=== PATIENT | male | born 1990 | race African-American/Black ===

== ENCOUNTER 2016-04-01 20:10 | Emergency (ER) | payer OTHER ==
[2016-04-01 20:22] VITALS: BP 129/75; PULSE 58; TEMP 98.3; BMI 24.3
[2016-04-01] MEDS ORDERED: IBUPROFEN 600 MG TABLET (FP) PO ONE (22:11)
[2016-04-01] MEDS ORDERED: IBUPROFEN 100 MG/5 ML UNIT DOSE CUPS ONE (22:14)
--- NOTE | 2016-04-01 22:17 | PDOC ---
History of Present Illness - General Chief Complaint: Toothache Stated Complaint: TOOTHACHE Time Seen by Provider: 04/01/16 21:49 History Source: Patient Exam Limitations: No Limitations - History of Present Illness Initial Comments: 04/01/16 22:12 CHIEF COMPLAINT: Upper molar pain left side HISTORY OF PRESENT ILLNESS: Patient is a 25-year-old male with no significant medical history here today complaining of left-sided upper molar pain especially when eating for the last few days. Patient denies any fever. Patient denies any swelling of his face on left side. Patient has an appointment with dentist next week. Patient reports that part of that tooth broke off a few months ago and was okay until a few days ago when he developed pain with eating on that side. Timing/Duration: getting worse Severity: moderate (left upper molar ) Modifying Factors: improves with: medication (ibuprofen ), other (worse with eating ) Associated Symptoms: reports: denies symptoms, other Past History - Past Medical History Allergies/Adverse Reactions: Allergies Allergy/AdvReac Type Severity Reaction Status Date / Time No Known Allergies Allergy Verified 04/01/16 20:20 Home Medications: Ambulatory Orders NK [No Known Home Medication] 04/01/16 Other medical history: denies - Psycho/Social/Smoking Cessation Hx Anxiety: No Suicidal Ideation: No Smoking History: Current every day smoker Have you smoked in the past 12 months: Yes Number of Cigarettes Smoked Daily: 10 Cigars Per Day: 1 Information on smoking cessation initiated: No Hx Alcohol Use: No Drug/Substance Use Hx: No Substance Use Type: None Review of Systems - Review of Systems Able to Perform ROS?: Yes Constitutional: No: Symptoms Reported HEENTM: Yes: Dental Problems (upper molar pain when eating) Respiratory: No: Symptoms reported Cardiac (ROS): No: Symptoms Reported ABD/GI: No: Symptoms Reported : No: Symptoms Reported Musculoskeletal: No: Symptoms Reported Integumentary: No: Symptoms Reported *Physical Exam - Vital Signs Last Vital Signs Temp Pulse Resp BP Pulse Ox 98.3 F 58 L 14 129/75 100 04/01/16 20:20 04/01/16 20:20 04/01/16 20:20 04/01/16 20:20 04/01/16 20:20 - Physical Exam General Appearance: Yes: Appropriately Dressed HEENT: positive: TMs Normal, Other (left upper molar fracture slight with no surrounding erythema, edema of gum). negative: Pharyngeal Erythema, Tonsillar Exudate, Tonsillar Erythema, Nasal Congestion, Rhinorrhea, Sinus Tenderness Neck: negative: Lymphadenopathy (R), Lymphadenopathy (L) Respiratory/Chest: positive: Lungs Clear, Normal Breath Sounds. negative: Chest Tender, Respiratory Distress Cardiovascular: positive: Regular Rhythm, Regular Rate, S1, S2 Integumentary: positive: Normal Color Neurologic: positive: Alert, Responsive Medical Decision Making - Medical Decision Making 04/01/16 22:15 Patient is a 25-year-old male with no significant medical history here today complaining of left-sided upper molar pain especially when eating for the last few days. Patient denies any fever. Patient denies any swelling of his face on left side. Patient has an appointment with dentist next week. Patient reports that part of that tooth broke off a few months ago and was okay until a few days ago when he developed pain with eating on that side. Fractured molar left with tooth pain with eating Plan: Ibuprofen 600 mg by mouth now then every 6 hours as needed for pain *DC/Admit/Observation/Transfer Diagnosis at time of Disposition: Toothache Fractured tooth Qualifiers: Encounter type: initial encounter Fracture type: closed Qualified Code(s): S02.5XXA - Fracture of tooth (traumatic), initial encounter for closed fracture - Discharge Dispostion Disposition: HOME Condition at time of disposition: Stable - Patient Instructions Additional Instructions: Up with your dentist as soon as possible Return to emergency room if any facial swelling or fever Do not eat or drink on left side eat soft foods 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
== END 2016-04-01 22:27 | disposition home or self-care (01) ==
LOC: JERFT 20:10
DX: K08.89 Other specified disorders of teeth and supporting structures (principal)
CPT/HCPCS: 99281-25

== ENCOUNTER 2016-10-23 19:04 | Emergency (ER) | payer OTHER ==
[2016-10-23 19:16] VITALS: BP 130/74; PULSE 69; TEMP 98.3; BMI 21.5
--- NOTE | 2016-10-23 20:25 | PDOC ---
History of Present Illness - History of Present Illness Initial Comments: 10/23/16 20:50 CHIEF COMPLAINT: abscess HISTORY OF PRESENT ILLNESS: 26 yo M with no PMH presents to [facility] with abscess to L rodriguez. Patient reports that 2 weeks ago he fell and "my leg hit a bench" and he "got scratched" on his rodriguez. Last week he noticed a bump developing to his leg, and the bump "opened in the shower and pus came out of it ", but the bump returned and is now painful with redness. Patient states he doesn't know if he has ever had a tetanus shot. PAST MEDICAL HISTORY: Denies past medical history FAMILY HISTORY: Denies SOCIAL HISTORY: LDenies tobacco, alcohol, illicit drug use. SURGICAL HISTORY: Denies ALLERGIES: No known drug allergies REVIEW OF SYSTEMS General/Constitutional: Denies fever or chills. Denies weakness, weight change. HEENT: Denies change in vision. Denies ear pain or discharge. Denies sore throat. Cardiovascular: Denies chest pain or shortness of breath. Respiratory: Denies cough, wheezing, or hemoptysis. Gastrointestinal: Denies nausea, vomiting, diarrhea or constipation. Denies rectal bleeding. Genitourinary: Denies dysuria, frequency, or change in urination. Musculoskeletal: Denies joint or muscle swelling or pain. Denies neck or back pain. Skin: "This bump on my leg came back, and it hurts around the whole area." PHYSICAL EXAM General Appearance: Well-appearing, appropriately dressed. No apparent distress , no intoxication. HEENT: EOMI, PERRLA, normal ENT inspection, normal voice, TMs normal, pharynx normal. No conjunctival pallor. No photophobia, scleral icterus. Neck: Supple. Trachea midline. No tenderness, rigidity, carotid bruit, stridor , lymphadenopathy, or thyromegaly. Respiratory/Chest: Lungs CTAB. Cardiovascular: RRR. S1, S2. Musculoskeletal/Extremities: Normal inspection. FROM of all extremities, normal capillary refill. Pelvis Stable. No CVA tenderness. No tenderness to extremities, pedal edema, swelling, erythema or deformity. Integumentary: 2 cm x 2 cm tender, fluctuant abscess to L rodriguez with healed ulceration and surrounding erythema. Appropriate color, dry, warm. No cyanosis , erythema, jaundice or rash Neurologic: mentally retarded teacher II-XII intact. Fully oriented, alert. Appropriate mood/affect. Motor strength 5/5. No appreciable EOM palsy, facial droop or sensory deficit. 10/23/16 20:54 <Rain Mackay - Last Filed: 10/23/16 20:03> <Nicol Gonsales - Last Filed: 10/23/16 21:37> - General Chief Complaint: Abscess Boil Stated Complaint: BOIL ON L LEG Time Seen by Provider: 10/23/16 19:51 Past History - Past Medical History Other medical history: denies - Psycho/Social/Smoking Cessation Hx Anxiety: No Suicidal Ideation: No Smoking History: Current every day smoker Have you smoked in the past 12 months: Yes Number of Cigarettes Smoked Daily: 10 Cigars Per Day: 1 Information on smoking cessation initiated: No Hx Alcohol Use: No Drug/Substance Use Hx: No Substance Use Type: None <Rain Mackay - Last Filed: 10/23/16 20:03> <Nicol Gonsales - Last Filed: 10/23/16 21:37> - Past Medical History Allergies/Adverse Reactions: Allergies Allergy/AdvReac Type Severity Reaction Status Date / Time No Known Allergies Allergy Verified 10/23/16 19:16 Home Medications: Ambulatory Orders Sulfamethoxazole/Trimethoprim [Bactrim Ds Tablet] 1 each PO BID #14 tablet 10/23 *Physical Exam - Vital Signs Last Vital Signs Temp Pulse Resp BP Pulse Ox 98.3 F 69 18 130/74 97 10/23/16 19:08 10/23/16 19:08 10/23/16 19:08 10/23/16 19:08 10/23/16 19:08 <Rain Mackay - Last Filed: 10/23/16 20:03> - Vital Signs Last Vital Signs Temp Pulse Resp BP Pulse Ox 98.3 F 69 18 130/74 97 10/23/16 19:08 10/23/16 19:08 10/23/16 19:08 10/23/16 19:08 10/23/16 19:08 <Nicol Gonsales - Last Filed: 10/23/16 21:37> Procedures - Incision and Drainage I&D Site: Left: Leg Anesthesia: 1% Lidocaine Volume(ml): 3 Blade Size: 11 Attempts: 1 Complications: none Dressing: Yes (sterile gauze) Progress: Site was prepped with alcohol, then area was circumferentially injected with lidocaine 1% without epi. Incised in the area of maximal fluctuance, and expressed sm amt of purulent material. Wound culture sent. <Nicol Gonsales - Last Filed: 10/23/16 21:37> ED Treatment Course - RADIOLOGY Radiology Studies Ordered: Category Date Time Status LEG TIB/FIB-LEFT [RAD] Stat Radiology 10/23/16 20:03 Ordered <Rain Mackay - Last Filed: 10/23/16 20:03> - Medications Given in the ED: ED Medications Discontinued Medications Generic Name Dose Route Start Last Admin Trade Name Freq PRN Reason Stop Dose Admin Diphtheria/Tetanus/Acell Pertussis 0.5 ml 10/23/16 20:26 10/23/16 20:34 Boostrix - IM 10/23/16 20:27 0.5 ml .ONCE ONE Administration <Nicol Gonsales - Last Filed: 10/23/16 21:37> Medical Decision Making - Medical Decision Making 10/23/16 20:54 26 yo M with no PMH presents to [facility] with abscess to L rodriguez. -Tdap IM -I&D (see procedure note) Given surrounding erythema and cellulitis, will rx Bactrim. Advised patient to take medication as prescribed, soak wound, and follow up in 2 days for wound check. Advised patient of signs and symptoms for return to ED. Patient verbalized understanding and agrees to plan. <Rain Mackay - Last Filed: 10/23/16 20:03> *DC/Admit/Observation/Transfer - Discharge Dispostion Admit: No <Rain Mackay - Last Filed: 10/23/16 20:03> <Nicol Gonsales - Last Filed: 10/23/16 21:37> Diagnosis at time of Disposition: Abscess - Discharge Dispostion Disposition: HOME Condition at time of disposition: Stable - Prescriptions Prescriptions: Sulfamethoxazole/Trimethoprim [Bactrim Ds Tablet] 1 each PO BID #14 tablet - Referrals Referrals: Reagan Rachel MD [Primary Care Provider] - - Patient Instructions Printed Discharge Instructions: DI for Incision and Drainage of a Skin Abscess Additional Instructions: As discussed with Dr. Gonsales, please soak the abscess to help drain out the infection. Return in 2 days for a wound check. Please take your medication as prescribe and complete the entire course of antibiotics. If you experience any increased pain, swelling, redness, swelling or streaking to the area, or you develop fever, chills, vomiting, or diarrhea, please return to the ER.
[2016-10-23] MEDS ORDERED: DIPHTH,PERTUSS(ACELL),TET 0.5 ML DISP.SYRIN IM ONE (20:26)
== END 2016-10-23 21:02 | disposition home or self-care (01) ==
LOC: JERFT 19:04
PROC: 0H9LXZZ Drainage of Left Lower Leg Skin, External Approach (ICD-10-PCS; principal; 2016-10-23)
PROC: 3E0234Z Introduction of Serum, Toxoid and Vaccine into Muscle, Percutaneous Approach (ICD-10-PCS; 2016-10-23)
DX: L02.416 Cutaneous abscess of left lower limb (principal)
CPT/HCPCS: 10060; 73590-TC-LT; 87070; 87186; 87205; 90471; 90715; 99281-25

== ENCOUNTER 2016-10-25 16:00 | Emergency (ER) | payer OTHER ==
[2016-10-25 16:30] VITALS: BP 122/81; PULSE 56; TEMP 98.5; BMI 21.5
--- NOTE | 2016-10-25 17:20 | PDOC ---
Suture Removal/Wound Check HPI - History of Present Illness Chief Complaint: Revisit,Wound Recheck Stated Complaint: FOLLOW UP Time Seen by Provider: 10/25/16 16:55 History Source: Yes: Patient Exam Limitations: Yes: No Limitations Treated at: [facility] ED - Previous ED Treatment Type of procedure performed on last visit: Yes: I&D of Abscess Tetanus Immunization: Yes: Up to Date Antibiotics Prescribed: Yes (bactrim- ) Past History - Travel Traveled outside of the country in the last 30 days: No Close contact w/someone who was outside of country & ill: No - Past Medical History Allergies/Adverse Reactions: Allergies No Known Allergies Allergy (Verified 10/25/16 16:33) Home Medications: Ambulatory Orders Sulfamethoxazole/Trimethoprim [Bactrim Ds Tablet] 1 each PO BID #14 tablet 10/23 General: Yes: no pertinent history Surgical History: Yes: No Surgical History - Immunization History Immunizations Up to Date: Yes - Social History Smoking Status: Current every day smoker Number of Ciarettes Per Day: 10 Cigars Per Day: 1 Suture Removal/Wound Check PE - Physical Exam Laceration/Wound Check Symptoms: reports: None Current Severity Level: None Location of Laceration/Wound: left: Leg (open lesion ~ 0.5cm with escar,) *Review of Systems - Review of Systems Able to Perform ROS?: Yes Constitutional: Yes: See HPI. No: Symptoms Reported, Fever, Malaise HEENTM: No: Symptoms Reported Integumentary: Yes: Symptoms Reported, See HPI, Other (lesion to mid-tibia with some tenderness and eschar- expressm thick purulent yellow/green plug and now site clear/beefy red-) Neurological: Yes: Symptoms reported All Other Systems: Reviewed and Negative Medical Decision Making - Medical Decision Making 10/25/16 17:38 abscess healing, cont abx, 10/25/16 17:40 *DC/Admit/Observation/Transfer Diagnosis at time of Disposition: Abscess, Wound check, abscess - Discharge Dispostion Disposition: HOME Condition at time of disposition: Stable Admit: No - Patient Instructions Printed Discharge Instructions: DI for Puncture Wound
[2016-10-25] MEDS ORDERED: BACITRACIN 15 GM TUBE TOPICAL OINTMENT ONE (17:28)
== END 2016-10-25 17:43 | disposition home or self-care (01) ==
LOC: JERFT 16:00
DX: Z09 Encounter for follow-up examination after completed treatment for conditions other than malignant neoplasm (principal); L02.416 Cutaneous abscess of left lower limb
CPT/HCPCS: 99281-25

== ENCOUNTER 2017-11-21 21:36 | Emergency (ER) | payer OTHER ==
[2017-11-21 21:52] VITALS: BMI 26.6
--- NOTE | 2017-11-21 21:54 | PDOC ---
History of Present Illness - General Chief Complaint: Nausea/Vomiting Stated Complaint: VOMITING Time Seen by Provider: 11/21/17 21:53 - History of Present Illness Initial Comments: 11/21/17 23:40 The patient is a 27 year old male with a history of HIV CD4 count 600 who presents for evaluation of nausea, vomiting, and diarrhea. The patient reports a several hour history of chills, nausea, multiple episodes of non-bilious, non- bloody vomiting, and diarrhea prompting his presentation to the ED for further evaluation. He notes some epigastric abdominal pain with radiation into his chest and notes that his mother was sick with a similar illness last week although not as severe. He otherwise denies SOB, chest pain, or changes with urination. Past History - Past Medical History Allergies/Adverse Reactions: Allergies Allergy/AdvReac Type Severity Reaction Status Date / Time dapsone AdvReac Verified 11/21/17 21:51 dapso AdvReac Uncoded 11/21/17 21:51 Home Medications: Ambulatory Orders Elviteg/Cob/Emtri/Tenof Alafen [Genvoya Tablet] 1 tab PO DAILY #30 tablet Ondansetron [Zofran Odt -] 4 mg SL TID #21 od.tablet 11/22/17 Anemia: No Asthma: No Cancer: No Cardiac Disorders: No CVA: No COPD: No CHF: No Dementia: No Diabetes: No GI Disorders: Yes (occas gastritis) Disorders: No (no hx gc/ct/syphilis) HTN: No Hypercholesterolemia: No Liver Disease: No Seizures: No Thyroid Disease: Yes (he has abn thyroid function not sure if hyper/hypo) - Immunization History Immunization Up to Date: Yes - Suicide/Smoking/Psychosocial Hx Smoking History: Never smoked Have you smoked in the past 12 months: No Number of Cigarettes Smoked Daily: 10 Cigars Per Day: 1 Information on smoking cessation initiated: No Hx Alcohol Use: No Drug/Substance Use Hx: No Substance Use Type: Marijuana Hx Substance Use Treatment: No Review of Systems - Review of Systems Comments:: 11/21/17 23:43 Constitutional: Fevers, Chills. No fatigue, malaise HEENT: No Rhinorrhea, nasal congestion, visual changes Cardiovascular: No chest pain, syncope, palpitations, lightheadedness Respiratory: No Cough, SOB, Hemoptysis, Gastrointestinal: Abdominal pain, nausea, vomiting, diarrhea. No Constipation, Melena Genitourinary: No Dysuria, Frequency, Urgency, Hesitancy, Hematuria, Flank pain Musculoskeletal: No Myalgia, arthralgia Skin: No rashes, itching, bruising, pallor Neurologic: No Headache, Dizziness, Numbness, Weakness, or Tingling Psychiatric: No Hallucinations. No SI or HI *Physical Exam - Vital Signs Last Vital Signs Temp Pulse Resp BP Pulse Ox 90 20 152/85 97 11/21/17 21:51 11/21/17 21:51 11/21/17 21:51 11/21/17 21:51 - Physical Exam Comments: 11/21/17 23:44 General Appearance: Nourished. In Mild Apparent Distress HEENT: No Pharyngeal Erythema, Tonsillar Exudate, Tonsillar Erythema Neck: No Cervical Lymphadenopathy Respiratory/Chest: Lungs Clear, Normal Breath Sounds. No Crackles, Rales, Rhonchi, Wheezing Cardiovascular: Regular Rhythm, Regular Rate. No Murmur, Gallops, Rubs Gastrointestinal/Abdominal: Normal Bowel Sounds, Soft. Epigastric tenderness to palpation on exam with some RUQ tenderness. No Guarding, Rebound, Musculoskeletal: No CVA Tenderness Extremity: Normal Capillary Refill Integumentary: Normal Color, Dry, Warm Neurologic: Fully Oriented, Alert, Normal Mood/Affect, Normal Response, ED Treatment Course - LABORATORY CBC & Chemistry Diagram: 11/21/17 23:27 11/21/17 23:27 Medical Decision Making - Medical Decision Making 11/21/17 23:44 The patient is a 27 year old male with a history of HIV CD4 count 600 who presents for evaluation of nausea, vomiting, and diarrhea. Differential includes but is not limited to: Gastroenteritis, Pancreatitis, Cholecystitis, Infectious, Metabolic Derangement. Given the patient's history and physical exam, we will obtain a cbc, cmp, lipase, gallbladder us to evaluate further for possible etiologies. We will treat with iv fluids, zofran, pepcid, maalox and continue to monitor and reassess while here in the ED. 11/21/17 01:37 CBC, cmp, lipase are unremarkable. The patient reports significant improvement in his symptoms. The patient was signed out to the night team pending gallbladder US results and reassessment. *DC/Admit/Observation/Transfer Diagnosis at time of Disposition: Nausea & vomiting Qualifiers: Vomiting type: unspecified Vomiting Intractability: non-intractable Qualified Code(s): R11.2 - Nausea with vomiting, unspecified - Discharge Dispostion Disposition: HOME Condition at time of disposition: Stable Decision to Admit order: No - Prescriptions Prescriptions: Ondansetron [Zofran Odt -] 4 mg SL TID #21 od.tablet - Referrals - Patient Instructions Printed Discharge Instructions: DI for Vomiting -- Adult Additional Instructions: Please return to the ER if you experience concerning or worsening symptoms including worsening abdominal pain, vomiting, or fevers. Your lab results were normal here in the ER. It is likely your symptoms are due to a viral gastroenteritis. We have sent a prescription for anti-nausea medication to your pharmacy that you may use with meals. Please call to schedule a follow up appointment with your primary care provider within 2-3 days to discuss your ER visit and further management of your symptoms. - Post Discharge Activity
[2017-11-21] MEDS ORDERED: MAG HYDROX/AL HYDROX/SIMETH 30 ML UNIT-DOSE CUP PO ONE (22:01)
[2017-11-21] MEDS ORDERED: ONDANSETRON 4 MG/2 ML VIAL IVPUSH ONE (22:01)
[2017-11-21] MEDS ORDERED: SODIUM CHLORIDE 1,000 ML IV STA (22:01)
[2017-11-21] MEDS ORDERED: FAMOTIDINE 20 MG/50 ML IVPB 20 MG/50 ML MG IVPB ONE ×2 (22:01→23:22)
--- NOTE | 2017-11-21 22:10 | PDOC ---
Attending Attestation - HPI HPI: 11/22/17 01:11 Patient is a 27 year old male with a significant past medical history of HIV CD4 count 600 , who presents to the ED with complaints of nausea and vomiting that began earlier this evening. Patient reports experiencing constant nausea and vomiting with associated diarrhea, chills, and mild epigastric abdominal pain prompting him to come into the ED for further evaluation. He reports abdominal pain has begun to slightly radiate up towards his chest. Patient reports his mother exhibited similar symptoms x1 week ago but states the symptoms were not as severe. Denies chest pain, sob. Denies nausea, vomiting. Denies contact with sick individuals, out of state travelling. Denies fevers, chills. Denies dysuria, hematuria. Denies diarrhea, constipation. Denies any other symptoms. Allergies: Dapsone Social history: No smoking. No alcohol. No illicit drugs. Surgical history: None PMD: None <Francisco Thrasher - Last Filed: 11/22/17 01:11> - Resident Resident Name: Jose R Roberto - ED Attending Attestation I have performed the following: I have examined & evaluated the patient, The case was reviewed & discussed with the resident, I agree w/resident's findings & plan, Exceptions are as noted - HPI HPI: 11/21/17 22:09 27 yo male with nausea,vomiting and diarrhea PMH HIV - Physicial Exam PE: 11/22/17 02:21 slender 27 yo male p/w N,V,D head ncat neck supple lungs cta b/l cvs [id number], tachycardia abd no rebound,no guarding ext no edema skin no rashes neuro axox3,ambulatory psych appropriate - Medical Decision Making 11/22/17 02:23 plan -pt receiving anti emetics,IVFs, ultrasound <Helga Lopes - Last Filed: 11/22/17 02:23>
[2017-11-21] MEDS ORDERED: ONDANSETRON 4 MG/2 ML VIAL ONE (23:21)
[2017-11-21] MEDS ORDERED: MAG HYDROX/AL HYDROX/SIMETH 30 ML UNIT-DOSE CUP ONE (23:21)
[2017-11-21 23:49] LABS: BASO % 0.3 % (0-2.0); HEMATOCRIT 40.3 % (35.4-49); HEMOGLOBIN 13.9 GM/dL (11.7-16.9); LYMPH % 5.1 % (8-40); MCH 34.9 pg (25.7-33.7); MCHC 34.4 g/dl (32.0-35.9); MEAN CELL VOLUME 101.3 fl (80-96); MEAN PLT VOLUME 8.5 fl (7.5-11.1); MONO % 2.7 % (3.8-10.2); NEUT % 91.9 % (42.8-82.8); PLATELET COUNT 213 K/MM3 (134-434); RBC 3.98 M/mm3 (4.00-5.60); RDW 12.2 % (11.9-15.9); WHITE BLOOD COUNT 13.1 K/mm3 (4.0-10.0)
[2017-11-22 00:20] LABS: ALBUMIN 4.7 g/dl (3.4-5.0); ALK PHOS 44 U/L (45-117); ANION GAP 12 MMOL/L (8-16); BILIRUBIN,TOTAL 0.9 mg/dL (0.2-1.0); BLOOD UREA NITROGEN 13 mg/dL (7-18); CALCIUM 9.9 mg/dL (8.5-10.1); CHLORIDE 101 mmol/L (98-107); CO2 27 mmol/L (21-32); CREATININE 1.1 mg/dL (0.7-1.3); GLUCOSE,RANDOM 123 mg/dL (74-106); LIPASE 67 U/L (73-393); POTASSIUM 4.1 mmol/L (3.5-5.1); SGOT/AST 22 U/L (15-37); SGPT/ALT 24 U/L (12-78); SODIUM 140 mmol/L (136-145); TOT PROT 8.4 g/dl (6.4-8.2)
[2017-11-22] MEDS ORDERED: SODIUM CHLORIDE 1,000 ML IV STA (00:58)
[2017-11-22] MEDS ORDERED: ONDANSETRON 4 MG/2 ML VIAL IVPUSH ONE (00:58)
[2017-11-22 01:01] LABS: ANISOCYTOSIS 1+; MACROCYTOSIS 1+; PLATELET ESTIMATE ADEQUATE
[2017-11-22] MEDS ORDERED: ACETAMINOPHEN 1000 MG/100 ML VIAL (NON FORMULARY) IVPB ONE (01:05)
[2017-11-22] MEDS ORDERED: ONDANSETRON 4 MG/2 ML VIAL ONE (01:07)
[2017-11-22] MEDS ORDERED: ACETAMINOPHEN INJECTION 100 ML IVPB ONE (01:07)
[2017-11-22 01:25] VITALS: BP 139/75; PULSE 89; TEMP 99.8
--- NOTE | 2017-11-22 02:02 | PDOC ---
*Physical Exam - Vital Signs Last Vital Signs Temp Pulse Resp BP Pulse Ox 99.8 F H 89 18 139/75 99 11/22/17 01:24 11/22/17 01:24 11/22/17 01:24 11/22/17 01:24 11/22/17 01:24 ED Treatment Course - LABORATORY CBC & Chemistry Diagram: 11/21/17 23:27 11/21/17 23:27 - ADDITIONAL ORDERS Additional order review: Laboratory Results 11/21/17 23:27 Sodium 140 Potassium 4.1 Chloride 101 Carbon Dioxide 27 Anion Gap 12 BUN 13 Creatinine 1.1 Creat Clearance w eGFR > 60 Random Glucose 123 H D Calcium 9.9 Total Bilirubin 0.9 AST 22 D ALT 24 Alkaline Phosphatase 44 L Total Protein 8.4 H Albumin 4.7 Lipase 67 L 11/21/17 23:27 RBC 3.98 L MCV 101.3 H MCHC 34.4 RDW 12.2 MPV 8.5 Neutrophils % 91.9 H D Lymphocytes % 5.1 L D Monocytes % 2.7 L Eosinophils % 0.0 D Basophils % 0.3 - Medications Given in the ED: ED Medications Discontinued Medications Generic Name Dose Route Start Last Admin Trade Name Freq PRN Reason Stop Dose Admin Acetaminophen 1,000 mg 11/22/17 01:05 11/22/17 01:20 Ofirmev Injection - IVPB 11/22/17 01:06 1,000 mg ONCE ONE Administration Al Hydroxide/Mg Hydroxide 30 ml 11/21/17 22:01 11/21/17 22:36 Mylanta Oral Suspension - PO 11/21/17 22:02 30 ml ONCE ONE Administration Famotidine/Sodium Chloride 20 mg in 50 mls @ 100 mls/hr 11/21/17 22:01 22:07 Pepcid 20 Mg Premixed Ivpb - IVPB 11/21/17 22:30 100 mls/hr ONCE ONE Administration Sodium Chloride 1,000 mls @ 1,000 mls/hr 11/21/17 22:01 11/21/17 22:36 Normal Saline - IV 11/21/17 23:00 1,000 mls/hr ASDIR STA Administration Sodium Chloride 1,000 mls @ 1,000 mls/hr 11/22/17 00:58 11/22/17 00:58 Normal Saline - IV 11/22/17 01:57 1,000 mls/hr ASDIR STA Administration Ondansetron HCl 4 mg 11/21/17 22:01 11/21/17 22:07 Zofran Injection IVPUSH 11/21/17 22:02 4 mg ONCE ONE Administration Ondansetron HCl 4 mg 11/22/17 00:58 11/22/17 00:58 Zofran Injection IVPUSH 11/22/17 00:59 4 mg ONCE ONE Administration Medical Decision Making - Medical Decision Making 11/22/17 01:58 The patient was signed out to me by Dr. Roberto. The patient is a 27M with a PMH of HIV who presents to the ER with abdominal pain. Pending RUQ U/S. Likely dispo home. Zofran sent to pharmacy. 11/22/17 03:30 RUQ negative. Pt states he feels much better. Will d/c. *DC/Admit/Observation/Transfer Diagnosis at time of Disposition: Nausea & vomiting Qualifiers: Vomiting type: unspecified Vomiting Intractability: non-intractable Qualified Code(s): R11.2 - Nausea with vomiting, unspecified - Discharge Dispostion Disposition: HOME Condition at time of disposition: Stable Decision to Admit order: No - Prescriptions Prescriptions: Ondansetron [Zofran Odt -] 4 mg SL TID #21 od.tablet - Referrals - Patient Instructions Printed Discharge Instructions: DI for Vomiting -- Adult Additional Instructions: Please return to the ER if you experience concerning or worsening symptoms including worsening abdominal pain, vomiting, or fevers. Your lab results were normal here in the ER. It is likely your symptoms are due to a viral gastroenteritis. We have sent a prescription for anti-nausea medication to your pharmacy that you may use with meals. Please call to schedule a follow up appointment with your primary care provider within 2-3 days to discuss your ER visit and further management of your symptoms. - Post Discharge Activity
== END 2017-11-22 05:35 | disposition home or self-care (01) ==
LOC: JER 21:36
PROC: 3E0337Z Introduction of Electrolytic and Water Balance Substance into Peripheral Vein, Percutaneous Approach (ICD-10-PCS; principal; 2017-11-21)
PROC: 3E033GC Introduction of Other Therapeutic Substance into Peripheral Vein, Percutaneous Approach (ICD-10-PCS; 2017-11-21)
PROC: 3E033GC Introduction of Other Therapeutic Substance into Peripheral Vein, Percutaneous Approach (ICD-10-PCS; 2017-11-21)
PROC: 3E033NZ Introduction of Analgesics, Hypnotics, Sedatives into Peripheral Vein, Percutaneous Approach (ICD-10-PCS; 2017-11-21)
DX: R11.2 Nausea with vomiting, unspecified (principal); Z21 Asymptomatic human immunodeficiency virus [HIV] infection status
CPT/HCPCS: 36415; 76705-TC; 80053; 83690; 85025; 96361; 96365; 96375; 96376; 99283-25; J0131; J7030

== ENCOUNTER 2018-07-02 22:56 | Emergency (ER) | payer OTHER ==
--- NOTE | 2018-07-02 23:16 | PDOC ---
History of Present Illness - General Stated Complaint: VOMITING Time Seen by Provider: 07/02/18 23:16 - History of Present Illness Initial Comments: 07/02/18 23:29 The patient is a 28 year old male with a history of HIV (last CD4 851), Gastritis who presents for evaluation of nausea, vomiting, diarrhea, abdominal pain. The patient reports a several hour history of sharp epigastric and suprapubic abdominal pain and nausea with associated multiple episodes of non- bloody vomiting and non-bloody diarrhea prompting his presentation to the ED for further evaluation. He notes that his symptoms began after eating left- over cheesecake this morning. He also endorses subjective fevers and chills, but otherwise denies SOB, chest pain, or changes with urination. Past History - Past Medical History Allergies/Adverse Reactions: Allergies Allergy/AdvReac Type Severity Reaction Status Date / Time dapsone AdvReac Verified 11/21/17 21:51 dapso AdvReac Uncoded 11/21/17 21:51 Home Medications: Ambulatory Orders Elviteg/Cob/Emtri/Tenof Alafen [Genvoya Tablet] 1 each PO DAILY #30 tablet 05/11 Ondansetron [Zofran Odt -] 4 mg SL TID #21 od.tablet 07/03/18 Anemia: No Asthma: No Cancer: No Cardiac Disorders: No CVA: No COPD: No CHF: No Dementia: No Diabetes: No GI Disorders: Yes (occas gastritis) Disorders: No (no hx gc/ct/syphilis) HTN: No Hypercholesterolemia: No Liver Disease: No Seizures: No Thyroid Disease: Yes (he has abn thyroid function not sure if hyper/hypo) - Immunization History Immunization Up to Date: Yes - Suicide/Smoking/Psychosocial Hx Smoking History: Never smoked Have you smoked in the past 12 months: No Number of Cigarettes Smoked Daily: 10 Cigars Per Day: 1 Hx Alcohol Use: No Drug/Substance Use Hx: Yes Substance Use Type: Marijuana Hx Substance Use Treatment: No Review of Systems - Review of Systems Comments:: 07/02/18 23:33 Constitutional: Subjective fevers, chills, No fatigue, malaise HEENT: No Rhinorrhea, nasal congestion, visual changes Cardiovascular: No chest pain, syncope, palpitations, lightheadedness Respiratory: No Cough, SOB, Hemoptysis, Gastrointestinal: Abdominal pain, Nausea, Vomiting, Diarrhea, No Constipation, Melena Genitourinary: No Dysuria, Frequency, Urgency, Hesitancy, Hematuria, Flank pain Musculoskeletal: No Myalgia, arthralgia Skin: No rashes, itching, bruising, pallor Neurologic: No Headache, Dizziness, Numbness, Weakness, or Tingling Psychiatric: No Hallucinations. No SI or HI *Physical Exam - Physical Exam Comments: 07/02/18 23:34 General Appearance: Nourished. No Apparent Distress HEENT: No Pharyngeal Erythema, Tonsillar Exudate, Tonsillar Erythema Neck: No Cervical Lymphadenopathy Respiratory/Chest: Lungs Clear, Normal Breath Sounds. No Crackles, Rales, Rhonchi, Wheezing Cardiovascular: Regular Rhythm, Regular Rate. No Murmur, Gallops, Rubs Gastrointestinal/Abdominal: Normal Bowel Sounds, Soft. Diffuse discomfort with palpation on exam. No Guarding, Rebound, Musculoskeletal: No CVA Tenderness Extremity: Normal Capillary Refill Integumentary: Normal Color, Dry, Warm Neurologic: Fully Oriented, Alert, Normal Mood/Affect, Normal Response, ED Treatment Course - LABORATORY CBC & Chemistry Diagram: 07/02/18 23:51 07/02/18 23:51 Medical Decision Making - Medical Decision Making 07/02/18 23:35 The patient is a 28 year old male with a history of HIV (last CD4 851), Gastritis who presents for evaluation of nausea, vomiting, diarrhea, abdominal pain. Differential includes but is not limited to: Viral gastroenteritis, Gastritis, Pancreatitis, Infectious, Metabolic Derangement. Given the patient' s history and physical exam, it is likely the patient's symptoms are due to a viral gastroenteritis. However, we will obtain a cbc, cmp, lipase, UA to evaluate further. We will treat with iv fluids, pepcid, zofran, mylanta and continue to monitor and reassess while here in the ED. 07/03/18 01:12 CBC demonstrates a wbc of 11 with left shift. CMP, UA, Lipase were unremarkable. The patient reports some improvement in his symptoms with a nontender abdomen on exam. We will treat the patient with reglan and continue to monitor and reassess while here in the ED. 07/03/18 01:47 The patient was reassessed and reports improvement in their symptoms. We are comfortable discharging the patient home in stable condition. Patient and family made aware of impression and plan, return precautions discussed including but not limited to worsening pain or symptoms, fevers, or signs of infection, chest pain, respiratory distress, inability to tolerate oral intake, dehydration, syncope, or neurologic changes. The patient is to follow up with PMD as recommended within 1 week, follow up information provided and the patient will call for an appointment. The patient is to take medications as instructed for duration of time and continue with supportive care, avoid triggers and precipitants. Patient is safe for outpatient follow-up. *DC/Admit/Observation/Transfer Diagnosis at time of Disposition: Nausea & vomiting Qualifiers: Vomiting type: unspecified Vomiting Intractability: unspecified Qualified Code( s): R11.2 - Nausea with vomiting, unspecified - Discharge Dispostion Disposition: HOME Condition at time of disposition: Stable - Prescriptions Prescriptions: Ondansetron [Zofran Odt -] 4 mg SL TID #21 od.tablet - Referrals Referrals: Reagan Rachel MD [Primary Care Provider] - - Patient Instructions Printed Discharge Instructions: DI for Nausea -- Adult, DI for Vomiting -- Adult Additional Instructions: 1) Please follow-up with your primary care doctor in the next 2-3 days. Please call tomorrow to schedule a follow up appointment. If you cannot follow up with your doctor within 1 week please return to the Emergency Department for any urgent issues. 2) Your laboratory results were normal here in the ER. 3) If you have any worsening of symptoms or any other concerns please return to the ER immediately. Return if worsening symptoms including fevers, headache, vomiting, visual or hearing disturbances, abdominal pain, chest pain, shortness of breath, syncope, dehydration, inability to take things by mouth/vomiting, altered mental status, or worsening concerning symptoms. 4) Please continue taking your home medications as directed. Your medications on discharge include Zofran that you may take to help with your nausea. - Post Discharge Activity Forms/Work/School Notes: Back to Work
[2018-07-02] MEDS ORDERED: ONDANSETRON 4 MG/2 ML VIAL IVPUSH ONE (23:17)
[2018-07-02] MEDS ORDERED: MAG HYDROX/AL HYDROX/SIMETH 30 ML UNIT-DOSE CUP PO ONE (23:17)
[2018-07-02] MEDS ORDERED: FAMOTIDINE 20 MG/50 ML IVPB 20 MG/50 ML MG IVPB ONE ×2 (23:17→23:36)
[2018-07-02] MEDS ORDERED: SODIUM CHLORIDE 1,000 ML IV STA (23:17)
[2018-07-02] MEDS ORDERED: MAG HYDROX/AL HYDROX/SIMETH 30 ML UNIT-DOSE CUP ONE (23:35)
[2018-07-02 23:36] VITALS: BP 155/64; PULSE 70; TEMP 98.2; BMI 22.9
[2018-07-02] MEDS ORDERED: ONDANSETRON 4 MG/2 ML VIAL ONE (23:36)
[2018-07-03 00:04] LABS: BASO % 0.3 % (0-2.0); HEMATOCRIT 43.3 % (35.4-49); HEMOGLOBIN 14.6 GM/dL (11.7-16.9); MCH 34.4 pg (25.7-33.7); MCHC 33.7 g/dl (32.0-35.9); MEAN CELL VOLUME 101.9 fl (80-96); MEAN PLT VOLUME 8.5 fl (7.5-11.1); MONO % 2.4 % (3.8-10.2); NEUT % 92.3 % (42.8-82.8); PLATELET COUNT 204 K/MM3 (134-434); RBC 4.24 M/mm3 (4.00-5.60); RDW 12.1 % (11.9-15.9); WHITE BLOOD COUNT 11.7 K/mm3 (4.0-10.0)
--- NOTE | 2018-07-03 00:16 | PDOC ---
Attending Attestation - HPI HPI: 07/03/18 00:19 The patient is a 28 year old male, with a significant past medical history of HIV (undetectable viral load), who presents to the emergency department with, nausea, vomiting, diarrhea, and abdominal pain. As per patient, he ate leftover cheesecake just prior to his arrival. He describes his emesis as bilious and describes his diarrhea as non-bloody. He denies any recent fevers, chills, headache or dizziness. He denies any recent chest pain or shortness of breath. He denies any recent dysuria, frequency, urgency or hematuria. Allergies: Dapsone. Primary Care Physician: Dr. Rachel - Physicial Exam PE: 07/03/18 00:19 GENERAL: Well-appearing, well-nourished. No apparent distress. HEENT: Normocephalic, atraumatic. PERRL, EOM intact. CARDIOVASCULAR: +Tachycardic after vomiting. PULMONARY: Clear to auscultation bilaterally. ABDOMEN: +Mild tenderness to deep palpation just above the umbilicus. Soft. Non- distended. No rebound or guarding. No organomegaly. Normoactive bowel sounds. EXTREMITIES: Normal ROM in all four extremities. No gross deformities. SKIN: Warm, dry. No rash NEUROLOGICAL: No focal neurological deficits. <Wan Cadena - Last Filed: 07/03/18 00:19> - Resident Resident Name: Jose R Roberto - ED Attending Attestation I have performed the following: I have examined & evaluated the patient, The case was reviewed & discussed with the resident, I agree w/resident's findings & plan, Exceptions are as noted - Medical Decision Making 07/03/18 01:30 pt is feeling much better chemistries reviewed ; NO ACIDOSIS, GLU SL ELEVATED 137, normal creatinine and normal lfts mild leukocytosis on cbc pt received IVF,anti emetics <Helga Lopes - Last Filed: 07/03/18 01:34> Attestations - Attestations 07/03/18 00:20 Documentation prepared by Wan Cadena, acting as medical technical writer for Helga Lopes MD. <Wan Cadena - Last Filed: 07/03/18 00:19>
[2018-07-03 00:24] LABS: ALBUMIN 4.4 g/dl (3.4-5.0); ALK PHOS 49 U/L (45-117); ANION GAP 10 MMOL/L (8-16); BILIRUBIN,TOTAL 0.6 mg/dL (0.2-1); BLOOD UREA NITROGEN 11 mg/dL (7-18); CHLORIDE 102 mmol/L (98-107); CO2 24 mmol/L (21-32); GLUCOSE,RANDOM 137 mg/dL (74-106); LIPASE 70 U/L (73-393); POTASSIUM 4.3 mmol/L (3.5-5.1); SGOT/AST 26 U/L (15-37); SGPT/ALT 38 U/L (13-61); SODIUM 136 mmol/L (136-145); TOT PROT 7.7 g/dl (6.4-8.2)
[2018-07-03] MEDS ORDERED: SODIUM CHLORIDE 1,000 ML IV STA (00:32)
[2018-07-03 00:58] LABS: PH,URINE >= 9.0 (5.0-8.0); URINE APPEARANCE CLEAR; URINE BILIRUBIN NEGATIVE (NEGATIVE); URINE COLOR YELLOW; URINE GLUCOSE (UA) NEGATIVE (NEGATIVE); URINE KETONE NEGATIVE (NEGATIVE); URINE LEUK ESTERASE NEGATIVE (NEGATIVE); URINE NITRITE NEGATIVE (NEGATIVE); URINE PROTEIN NEGATIVE (NEGATIVE); URINE UROBILINOGEN 0.2 mg/dL (0.2-1.0)
[2018-07-03 01:06] LABS: ANISOCYTOSIS 1+; MACROCYTOSIS 1+; PLATELET ESTIMATE ADEQUATE
[2018-07-03] MEDS ORDERED: METOCLOPRAMIDE HCL INJECTION 10 MG/2 ML VIAL IVPUSH ONE (01:09)
[2018-07-03] MEDS ORDERED: METOCLOPRAMIDE HCL INJECTION 10 MG/2 ML VIAL ONE (01:10)
== END 2018-07-03 02:35 | disposition home or self-care (01) ==
LOC: SUPCPDRO 22:56 → JER 22:56
PROC: 3E0337Z Introduction of Electrolytic and Water Balance Substance into Peripheral Vein, Percutaneous Approach (ICD-10-PCS; principal; 2018-07-02)
PROC: 3E033GC Introduction of Other Therapeutic Substance into Peripheral Vein, Percutaneous Approach (ICD-10-PCS; 2018-07-02)
PROC: 3E033GC Introduction of Other Therapeutic Substance into Peripheral Vein, Percutaneous Approach (ICD-10-PCS; 2018-07-02)
PROC: 3E033GC Introduction of Other Therapeutic Substance into Peripheral Vein, Percutaneous Approach (ICD-10-PCS; 2018-07-02)
DX: R11.2 Nausea with vomiting, unspecified (principal); Z21 Asymptomatic human immunodeficiency virus [HIV] infection status
CPT/HCPCS: 36415; 80053; 81003; 83690; 85025; 96361; 96365; 96375; 99282-25; J7030

== ENCOUNTER 2018-07-05 23:40 | Inpatient (IN) | payer OTHER ==
[2018-07-06] MEDS ORDERED: ONDANSETRON *ODT* 4 MG TABLET SL ONE (00:29)
[2018-07-06] MEDS ORDERED: SODIUM CHLORIDE 1,000 ML IV STA (00:31)
[2018-07-06] MEDS ORDERED: ONDANSETRON *ODT* 4 MG TABLET ONE (00:38)
[2018-07-06 01:00] LABS: BASO % 0.5 % (0-2.0); HEMATOCRIT 42.7 % (35.4-49); HEMOGLOBIN 14.6 GM/dL (11.7-16.9); LYMPH % 7.3 % (8-40); MCH 34.9 pg (25.7-33.7); MCHC 34.3 g/dl (32.0-35.9); MEAN CELL VOLUME 101.9 fl (80-96); MEAN PLT VOLUME 7.9 fl (7.5-11.1); MONO % 3.9 % (3.8-10.2); NEUT % 88.3 % (42.8-82.8); PLATELET COUNT 208 K/MM3 (134-434); RBC 4.19 M/mm3 (4.00-5.60); RDW 12.1 % (11.9-15.9); WHITE BLOOD COUNT 11.1 K/mm3 (4.0-10.0)
[2018-07-06] MEDS ORDERED: METOCLOPRAMIDE HCL INJECTION 10 MG/2 ML VIAL IVPUSH ONE (01:27)
--- NOTE | 2018-07-06 01:27 | PDOC ---
History of Present Illness - General Chief Complaint: Nausea/Vomiting Stated Complaint: NAUSEA VOMITTING Time Seen by Provider: 07/06/18 00:06 - History of Present Illness Initial Comments: 07/06/18 02:07 28M with pmh of currently in treatment at [facility] presents to the ED for nausea, vomiting and diarrhea since this morning. Has been vomiting too many times to count today and 4 episodes of diarrhea, watery. Complains of He states that he has had those symptoms for a week, was seen in this ER 4 days ago, and symptoms resolved with fluids and zofran. Was seen at [facility] 2 days ago where he was found to have abnormal cells in his anal PAP smear and referred to [facility] colorectal clinic for a colonoscopy for which he'll get a callback for. Smokes marijuana daily. 07/06/18 02:22 Past History - Past Medical History Allergies/Adverse Reactions: Allergies Allergy/AdvReac Type Severity Reaction Status Date / Time dapsone AdvReac Verified 07/06/18 00:41 dapso AdvReac Uncoded 07/06/18 00:41 Home Medications: Ambulatory Orders Elviteg/Cob/Emtri/Tenof Alafen [Genvoya Tablet] 1 each PO DAILY #30 tablet 05/11 Anemia: No Asthma: No Cancer: No Cardiac Disorders: No CVA: No COPD: No CHF: No Dementia: No Diabetes: No GI Disorders: Yes (occas gastritis) Disorders: No (no hx gc/ct/syphilis) HTN: No Hypercholesterolemia: No Liver Disease: No Seizures: No Thyroid Disease: Yes (he has abn thyroid function not sure if hyper/hypo) - Immunization History Immunization Up to Date: Yes - Suicide/Smoking/Psychosocial Hx Smoking History: Current some day smoker Have you smoked in the past 12 months: Yes Number of Cigarettes Smoked Daily: 10 Cigars Per Day: 1 Information on smoking cessation initiated: No Hx Alcohol Use: Yes Drug/Substance Use Hx: Yes Substance Use Type: Marijuana Hx Substance Use Treatment: No Review of Systems - Review of Systems Able to Perform ROS?: Yes Is the patient limited Macedonian proficient: No Constitutional: Yes: See HPI HEENTM: No: Symptoms Reported Respiratory: No: Symptoms reported Cardiac (ROS): No: Symptoms Reported ABD/GI: Yes: See HPI : No: Symptoms Reported Musculoskeletal: No: Symptoms Reported Integumentary: No: Symptoms Reported All Other Systems: Reviewed and Negative *Physical Exam - Vital Signs Last Vital Signs Temp Pulse Resp BP Pulse Ox 98.8 F 71 18 137/76 100 07/05/18 23:40 07/05/18 23:40 07/05/18 23:40 07/05/18 23:40 07/05/18 23:40 - Physical Exam General Appearance: Yes: Nourished, Appropriately Dressed, Moderate Distress HEENT: positive: EOMI, FRANCIS, Normal ENT Inspection Respiratory/Chest: positive: Lungs Clear, Normal Breath Sounds. negative: Chest Tender, Respiratory Distress Cardiovascular: positive: Regular Rhythm, Regular Rate, S1, S2 Gastrointestinal/Abdominal: positive: Normal Bowel Sounds, Flat, Soft. negative : Tender Musculoskeletal: positive: Normal Inspection. negative: CVA Tenderness Extremity: positive: Normal Capillary Refill, Normal Inspection, Normal Range of Motion Integumentary: positive: Normal Color, Dry, Warm Neurologic: positive: Fully Oriented, Alert, Depressed Affect ED Treatment Course - LABORATORY CBC & Chemistry Diagram: 07/06/18 00:50 07/06/18 00:50 - ADDITIONAL ORDERS Additional order review: 07/06/18 00:50 RBC 4.19 MCV 101.9 H MCHC 34.3 RDW 12.1 MPV 7.9 Neutrophils % 88.3 H D Lymphocytes % 7.3 L D Monocytes % 3.9 Eosinophils % 0.0 D Basophils % 0.5 - RADIOLOGY Radiology Studies Ordered: Category Date Time Status ABDOMEN & PELVIS CT WITH CONTR [CT] Stat CT Scan 07/06/18 01:21 Ordered - Medications Given in the ED: ED Medications Discontinued Medications Generic Name Dose Route Start Last Admin Trade Name Freq PRN Reason Stop Dose Admin Ondansetron HCl 8 mg 07/06/18 00:29 07/06/18 00:42 Zofran Odt - SL 07/06/18 00:30 8 mg ONCE ONE Administration Medical Decision Making - Medical Decision Making 07/06/18 04:44 28 yo male h/o hiv, recently diagnosed concern for anorectal cancer, here with n /v/ chills and diarreha. Colitis, diverticulitis, gastroenteritis, ca, Will attempt to control nausea/vomiting with zofran and reglan. IVF CT abdomen negative Will admit for intractable vomiting *DC/Admit/Observation/Transfer Diagnosis at time of Disposition: Intractable vomiting - Discharge Dispostion Condition at time of disposition: Fair - Referrals Referrals: Reagan Rachel MD [Primary Care Provider] - - Patient Instructions - Post Discharge Activity
[2018-07-06 01:29] LABS: ALBUMIN 4.4 g/dl (3.4-5.0); ALK PHOS 52 U/L (45-117); ANION GAP 9 MMOL/L (8-16); BILIRUBIN,TOTAL 0.8 mg/dL (0.2-1); BLOOD UREA NITROGEN 12 mg/dL (7-18); CALCIUM 9.5 mg/dL (8.5-10.1); CHLORIDE 97 mmol/L (98-107); CO2 29 mmol/L (21-32); CREATININE 0.9 mg/dL (0.55-1.3); GLUCOSE,RANDOM 112 mg/dL (74-106); POTASSIUM 3.7 mmol/L (3.5-5.1); SGOT/AST 24 U/L (15-37); SGPT/ALT 32 U/L (13-61); SODIUM 134 mmol/L (136-145); TOT PROT 7.6 g/dl (6.4-8.2)
[2018-07-06] MEDS ORDERED: METOCLOPRAMIDE HCL INJECTION 10 MG/2 ML VIAL ONE (01:32)
--- NOTE | 2018-07-06 01:32 | PDOC ---
Attending Attestation - Resident Resident Name: Vaughn Danielle - ED Attending Attestation I have performed the following: I have examined & evaluated the patient, The case was reviewed & discussed with the resident, I agree w/resident's findings & plan, Exceptions are as noted - HPI HPI: 07/06/18 01:28 28 yo h/o HIV followed at clinic here with n/v / d was at [facility] 2 days prior. c/o n/v/d chilld. subjective fevers. no recent abx, or travel. was seeen at [facility], noted to have anal lesion concerns for analrectal cancer referred To GI clinic at [facility] appointment scheduled by dr Mosquera. pt c /o generalized pain and chills. was seen in ed for same 4 days ago. does smoke thc daily. - Physicial Exam PE: 07/06/18 01:30 awake alert lungs clear bilaterallyheart rrr no mrg abd soft left sided mild ttp. . ext wwp no edema. no calf tenderness. ext wwp. skin warm and dry. - Medical Decision Making 07/06/18 01:30 28 yo male h/o hiv, recently diagnosed concern for anorectal cancer, here with n /v/ chills and diarreha. differential: colitis, diverticulitis, gastroenteritis , ca, plan ct a/p ivf, r/o electrolyte abnoramlity. will likely have to be admitted. if nausea not controled.
[2018-07-06 04:09] LABS: URINE APPEARANCE CLEAR; URINE BILIRUBIN NEGATIVE (NEGATIVE); URINE COLOR YELLOW; URINE GLUCOSE (UA) NEGATIVE (NEGATIVE); URINE KETONE NEGATIVE (NEGATIVE)
[2018-07-06 04:10] LABS: URINE NITRITE NEGATIVE (NEGATIVE); URINE PROTEIN NEGATIVE (NEGATIVE)
[2018-07-06 04:11] LABS: URINE LEUK ESTERASE NEGATIVE (NEGATIVE)
[2018-07-06] MEDS ORDERED: LORazepam 2 MG/ML SDV VIAL ONE (04:17)
[2018-07-06 04:20] LABS: LIPASE 75 U/L (73-393)
--- NOTE | 2018-07-06 05:54 | PN ---
Teaching Attending Note Name of Resident: Red Burleson ATTENDING PHYSICIAN STATEMENT I saw and evaluated the patient. I reviewed the resident's note and discussed the case with the resident. I agree with the resident's findings and plan as documented. SUBJECTIVE: Patient is a 28 year old man with history of HIV disease followed at [facility] (On Genvoya; ?recent CD4 851), Tobacco use, thyroid dysfunction (not sure if hyper or hypo) and daily marijuana use presents with nausea, vomiting and diarrhea. Also has subjective fevers. No recent antibiotic use, or travel. Was in [facility] ER on 07/02/18 for same complaints, and at that time said symptoms started after eating left-over cheese cake. He was discharged on Zofran and didnot get CT abdomen. In October 2017, he was also in the ER with similar complaints and it was attributed to viral gastroenteritis. Was recently noted at [facility] to have anal lesions on PAP smear concerning for anorectal cancer and was referred to GI clinic at [facility] for further workup. He has generalized pains and chills. OBJECTIVE: Alert Vital Signs Period Temp Pulse Resp BP Sys/Ortega Pulse Ox Last 24 Hr 98.8 F 71-82 18-18 132-137/74-76 100-100 HEENT: No Jaundice, eye redness or discharge, PERRLA, EOMI. Normocephalic, atraumatic. External ears are normal and hearing is grossly intact. No nasal discharge. Neck: Supple, nontender. No palpable adenopathy or thyromegaly. No JVD Chest: Good effort. Clear to auscultation and percussion. Heart: Regular. No S3, rub or murmur Abdomen: Not distended, soft, nontender and no HSM. No rebound or guarding. Normal bowel sounds. Ext: Peripheral pulses intact. No leg edema. Skin: Warm and dry. No petechiae, rash or ecchymosis. Neuro: Alert. Oriented x3. CN 2-12 grossly intact. Sensation grossly intact in all four extremities and DTR are symmetric. Psych: Sad mood, Appropriate affect. Good insight. Home Medications Medication Instructions Recorded Elviteg/Cob/Emtri/Tenof Alafen 1 each PO DAILY #30 tablet 05/11/18 [Genvoya Tablet] Abnormal Lab Results 07/06/18 07/06/18 07/06/18 00:50 00:50 03:21 WBC 11.1 H MCV 101.9 H MCH 34.9 H Absolute Neuts (auto) 9.8 H Neutrophils % 88.3 H D Lymphocytes % 7.3 L D Sodium 134 L Chloride 97 L Random Glucose 112 H Ur Specific [place] 1.079 H ASSESSMENT AND PLAN: 1. Gastroenteritis - Etiology is unclear, though his daily marijuana use may be contributing. Opportunistic infection less likely in view of high CD4. Stool being sent for ova and parasites, cryptosporidium, c.diff toxin, culture and leukocytes. CT abd/pelvis with IV contrast showed only possible cystitis, but urinalysis was negative for infection. Will get blood cultures and treat with IV LR at 150 ml/hour and IV zofran. Counseled to stop daily marijuana use. High MCV may signal surreptitious alcohol abuse. Consult ID and GI. Will withhold antibiotics at this time pending results of workup. Will ultimately need a colonoscopy. 2. Tobacco Use Counseled on risks associated with tobacco use. We will provide patient all the necessary assistance to facilitate smoking cessation and prescribe Nicotine patch. 3. DVT prophylaxis - Lovenox 40 mg SQ q 24 hours. 4. Advance directives - Full code
--- NOTE | 2018-07-06 06:03 | PDOC ---
*Physical Exam - Vital Signs Last Vital Signs Temp Pulse Resp BP Pulse Ox 98.8 F 82 18 132/74 100 07/05/18 23:40 07/06/18 03:40 07/06/18 03:40 07/06/18 03:40 07/06/18 03:40 ED Treatment Course - LABORATORY CBC & Chemistry Diagram: 07/06/18 00:50 07/06/18 00:50 - ADDITIONAL ORDERS Additional order review: Laboratory Results 07/06/18 07/06/18 03:21 00:50 Sodium 134 L Potassium 3.7 Chloride 97 L Carbon Dioxide 29 Anion Gap 9 BUN 12 Creatinine 0.9 Creat Clearance w eGFR 99.77 Random Glucose 112 H Calcium 9.5 Total Bilirubin 0.8 AST 24 ALT 32 Alkaline Phosphatase 52 Total Protein 7.6 Albumin 4.4 Lipase 75 Urine Color Yellow Urine Appearance Clear Urine pH 8.0 D Ur Specific [place] 1.079 H Urine Protein Negative Urine Glucose (UA) Negative Urine Ketones Negative Urine Blood Negative Urine Nitrite Negative Urine Bilirubin Negative Urine Urobilinogen 1.0 Ur Leukocyte Esterase Negative 07/06/18 00:50 RBC 4.19 MCV 101.9 H MCHC 34.3 RDW 12.1 MPV 7.9 Neutrophils % 88.3 H D Lymphocytes % 7.3 L D Monocytes % 3.9 Eosinophils % 0.0 D Basophils % 0.5 - RADIOLOGY Radiology Studies Ordered: Category Date Time Status ABDOMEN & PELVIS CT WITH CONTR [CT] Stat CT Scan 07/06/18 01:21 Taken - Medications Given in the ED: ED Medications Discontinued Medications Generic Name Dose Route Start Last Admin Trade Name Freq PRN Reason Stop Dose Admin Sodium Chloride 1,000 mls @ 1,000 mls/hr 07/06/18 00:31 07/06/18 00:51 Normal Saline - IV 07/06/18 01:30 1,000 mls/hr ASDIR STA Administration Lorazepam 1 mg 07/06/18 04:04 07/06/18 04:23 Ativan Injection - IVPUSH 07/06/18 04:05 1 mg ONCE ONE Administration Metoclopramide HCl 10 mg 07/06/18 01:27 07/06/18 01:35 Reglan Injection - IVPUSH 07/06/18 01:28 10 mg ONCE ONE Administration Ondansetron HCl 8 mg 07/06/18 00:29 07/06/18 00:42 Kevin Odt - SL 07/06/18 00:30 8 mg ONCE ONE Administration *DC/Admit/Observation/Transfer Diagnosis at time of Disposition: Intractable vomiting - Discharge Dispostion Condition at time of disposition: Fair Decision to Admit order: Yes - Referrals Referrals: Reagan Rachel MD [Primary Care Provider] - - Patient Instructions - Post Discharge Activity
--- NOTE | 2018-07-06 06:24 | HP ---
CHIEF COMPLAINT: Intractable Vomiting PCP: Dr Rachel HISTORY OF PRESENT ILLNESS: Pt is a 28 y/o gentleman with a significant past medical history of HIV (Last CD4 Count 816 11/2018) who presented to [facility] due to intractable vomiting. Pt endorses that he has been vomiting since Tuesday. Vomit is described as being all colors. Pt also endorses diarrhea during this time. Pt was recently treated in our ED on 07/02/18 for similar symptoms. Pt at that time was treated with Zofran and I.V fluids which helped assuage his symptoms. Pt was recently seen at [facility] and found to have an abnormal anal pap smear. Pt denies any changes in diet or routine. Denies chest pain or shortness of breath. Endorses that he smokes Marijuana daily. Past Surg Hx- Denies Social Hx-Smokes marijuana daily, Denies alcohol or illicit drug use FH- Mother HTN. ER course was notable for: (1) CTAP--> No acute pathology. Possible Cystitis. (2) Received zofran and reglan in ED Allergies dapsone Adverse Reaction (Verified 07/06/18 00:41) dapso Adverse Reaction (Uncoded 07/06/18 00:41) g6pd deficiency = hemolytic anemia risk HOME MEDICATIONS: Home Medications Medication Instructions Recorded Elviteg/Cob/Emtri/Tenof Alafen 1 each PO DAILY #30 tablet 05/11/18 [Genvoya Tablet] REVIEW OF SYSTEMS CONSTITUTIONAL: PRESENT: fever, vomiting HEENT: Absent: rhinorrhea, nasal congestion, throat pain, throat swelling, difficulty swallowing, mouth swelling, ear pain, eye pain, visual changes CARDIOVASCULAR: Absent: chest pain, syncope, palpitations, irregular heart rate, lightheadedness , peripheral edema RESPIRATORY: Absent: cough, shortness of breath, dyspnea with exertion, orthopnea, wheezing, stridor, hemoptysis GASTROINTESTINAL: PRESENT: vomiting, diarrhea, GENITOURINARY: Absent: dysuria, frequency, urgency, hesitancy, hematuria, flank pain, genital pain MUSCULOSKELETAL: Absent: myalgia, arthralgia, joint swelling, back pain, neck pain SKIN: Absent: rash, itching, pallor HEMATOLOGIC/IMMUNOLOGIC: Absent: easy bleeding, easy bruising, lymphadenopathy, frequent infections ENDOCRINE: Absent: unexplained weight gain, unexplained weight loss, heat intolerance, cold intolerance NEUROLOGIC: Absent: headache, focal weakness or paresthesias, dizziness, unsteady gait, seizure, mental status changes, bladder or bowel incontinence PSYCHIATRIC: Absent: anxiety, depression, suicidal or homicidal ideation, hallucinations. PHYSICAL EXAMINATION Vital Signs - 24 hr 07/05/18 07/06/18 23:40 03:40 Temperature 98.8 F Pulse Rate 71 Pulse Rate [ 82 Apical] Respiratory 18 18 Rate Blood Pressure 137/76 Blood Pressure 132/74 [Left Arm] O2 Sat by Pulse 100 100 Oximetry (%) GENERAL: AAOx3, NAD HEAD: Normal with no signs of trauma. EYES: EOMI Sclear EARS, NOSE, THROAT: MMM NECK: Supple, No JVD LUNGS: CTAB HEART: RRR nl s1s2 ABDOMEN: NDNT MUSCULOSKELETAL: FROM throughout LOWER EXTREMITIES: onychomycosis b/l feet. NEUROLOGICAL: Cranial nerves II-XII intact. Normal speech PSYCHIATRIC: Cooperative. Good eye contact. Appropriate mood and affect. SKIN: No rashes or lesions appreciated Laboratory Results - last 24 hr 07/06/18 07/06/18 07/06/18 00:50 00:50 03:21 WBC 11.1 H RBC 4.19 Hgb 14.6 Hct 42.7 MCV 101.9 H MCH 34.9 H MCHC 34.3 RDW 12.1 Plt Count 208 MPV 7.9 Absolute Neuts (auto) 9.8 H Neutrophils % 88.3 H D Lymphocytes % 7.3 L D Monocytes % 3.9 Eosinophils % 0.0 D Basophils % 0.5 Nucleated RBC % 0 Sodium 134 L Potassium 3.7 Chloride 97 L Carbon Dioxide 29 Anion Gap 9 BUN 12 Creatinine 0.9 Creat Clearance w eGFR 99.77 Random Glucose 112 H Calcium 9.5 Total Bilirubin 0.8 AST 24 ALT 32 Alkaline Phosphatase 52 Total Protein 7.6 Albumin 4.4 Lipase 75 Urine Color Yellow Urine Appearance Clear Urine pH 8.0 D Ur Specific [place] 1.079 H Urine Protein Negative Urine Glucose (UA) Negative Urine Ketones Negative Urine Blood Negative Urine Nitrite Negative Urine Bilirubin Negative Urine Urobilinogen 1.0 Ur Leukocyte Esterase Negative ASSESSMENT/PLAN: Pt is a 28 y/o gentleman with a significant past medical history of HIV (Last CD4 Count 8111/2018) who presented to [facility] due to intractable vomiting. Pt endorses that he has been vomiting since Tuesday. #Intractable vomiting/ Diarrhea 2/2 Marijuana/ Gastroenteritis/ immunocompromised state (HIV) - Last CD4+ count 816 -Stool Studies for Ova and Parasites/ Cryptosporidium/Giardia/ C Diff and Stool leukocytes -CTAP---> No acute pathology. no evidence of collitis. -ID Consult -GI Consult -NPO advance diet as tolerated -LR@ 150cc/hr -Zofran PRN. F/u EKG to assess QTc. May give Tigan if QTc prolonged. #HIV -On Genvoya. May also cause diarrhea. - ID Consult -Last CD4 816. # Abnormal cells on anal pap - Continue outpatient follow-up at [facility] colorectal clinic # Suspected Thyroid dysfunction -TSH, FT4 #FEN LR@150 cc/hr Monitor Electrolytes NPO #DVT ppx: SCD's #Dispo: Med-Surg Visit type - Emergency Visit Emergency Visit: Yes ED Registration Date: 07/06/18 Care time: The patient presented to the Emergency Department on the above date and was hospitalized for further evaluation of their emergent condition. - New Patient This patient is new to me today: Yes Date on this admission: 07/06/18 - Critical Care Critical Care patient: No
[2018-07-06] MEDS ORDERED: TRIMETHOBENZAMIDE HCL 200MG/2ML INJ IM PRN (07:06)
[2018-07-06] MEDS: LACTATED RINGERS SOLUTION 1,000 ML/1,000 ML INFUS.BAG IV SCH ×2 (07:38→10:32)
[2018-07-06 07:44] LABS: BASO % 0.3 % (0-2.0); EOS % 0.1 % (0-4.5); HEMATOCRIT 42.7 % (35.4-49); HEMOGLOBIN 14.8 GM/dL (11.7-16.9); LYMPH % 10.1 % (8-40); MCH 34.6 pg (25.7-33.7); MCHC 34.7 g/dl (32.0-35.9); MEAN CELL VOLUME 99.7 fl (80-96); MEAN PLT VOLUME 7.7 fl (7.5-11.1); MONO % 4.7 % (3.8-10.2); NEUT % 84.8 % (42.8-82.8); PLATELET COUNT 229 K/MM3 (134-434); RBC 4.28 M/mm3 (4.00-5.60); RDW 12.3 % (11.9-15.9); WHITE BLOOD COUNT 11.3 K/mm3 (4.0-10.0)
[2018-07-06 08:12] LABS: INR 1.12 (0.83-1.09); PROTHROMBIN TIME (PATIENT) 13.2 SEC (9.7-13.0)
[2018-07-06 08:15] LABS: ACTIVATED PTT 35.9 SECONDS (25.2-36.5)
[2018-07-06 08:16] LABS: ALBUMIN 4.4 g/dl (3.4-5.0); ALK PHOS 51 U/L (45-117); ANION GAP 8 MMOL/L (8-16); BILIRUBIN,TOTAL 1.2 mg/dL (0.2-1); BLOOD UREA NITROGEN 9 mg/dL (7-18); CALCIUM 9.1 mg/dL (8.5-10.1); CHLORIDE 99 mmol/L (98-107); CO2 30 mmol/L (21-32); CREATININE 0.8 mg/dL (0.55-1.3); GLUCOSE,RANDOM 111 mg/dL (74-106); MAGNESIUM 2.2 mg/dL (1.8-2.4); PHOSPHOROUS 3.1 mg/dL (2.5-4.9); POTASSIUM 3.5 mmol/L (3.5-5.1); SGOT/AST 20 U/L (15-37); SGPT/ALT 31 U/L (13-61); SODIUM 137 mmol/L (136-145); TOT PROT 7.4 g/dl (6.4-8.2)
[2018-07-06 08:39] LABS: LIPASE 90 U/L (73-393)
--- NOTE | 2018-07-06 10:05 | PN ---
Teaching Attending Note Name of Resident: Angi Irwin ATTENDING PHYSICIAN STATEMENT I saw and evaluated the patient. I reviewed the resident's note and discussed the case with the resident. I agree with the resident's findings and plan as documented with exceptions below. SUBJECTIVE: Patient seen and examined. Feels better, had an episode of greenish vomitus this AM, just had clears and tolerated well. Feels epigastric soreness and substernal burning sensation, no abdominal pain otherwise, no diarrhea inhouse. OBJECTIVE: Vital Signs Period Temp Pulse Resp BP Sys/Ortega Pulse Ox Last 24 Hr 98.8 F 71-82 18-18 132-137/74-76 100-100 Intake & Output 07/03/18 07/04/18 07/05/18 07/06/18 23:59 23:59 23:59 23:59 Weight 150 lb General: sitting in bed in no acute distress Chest: CTAB, no rales or wheezing Abdomen: soft, Mild epigastric superficial tenderness, NT otherwise, no voluntary or involuntary guarding or rigidity, positive bowel sounds Extremities: no edema Rectal: no anal warts or erythema, no haemorrhoid or blood noted on exam Home Medications Medication Instructions Recorded Elviteg/Cob/Emtri/Tenof Alafen 1 each PO DAILY #30 tablet 05/11/18 [Genvoya Tablet] Active Medications Lactated Ringer's (Lactated Ringers Solution) 1,000 ml in 1,000 mls @ 150 mls/ hr IV ASDIR MI Last Admin: 07/06/18 07:38 Dose: 150 mls/hr Nicotine (Nicoderm Patch -) 7 mg TD DAILY MI Pantoprazole Sodium (Protonix Iv) 40 mg IVPUSH DAILY MI Trimethobenzamide HCl (Tigan Injection -) 200 mg IM Q8H PRN PRN Reason: NAUSEA Laboratory Results - last 24 hr 07/06/18 07/06/18 07/06/18 00:50 00:50 03:21 WBC 11.1 H RBC 4.19 Hgb 14.6 Hct 42.7 MCV 101.9 H MCH 34.9 H MCHC 34.3 RDW 12.1 Plt Count 208 MPV 7.9 Absolute Neuts (auto) 9.8 H Neutrophils % 88.3 H D Lymphocytes % 7.3 L D Monocytes % 3.9 Eosinophils % 0.0 D Basophils % 0.5 Nucleated RBC % 0 PT with INR INR PTT (Actin FS) Sodium 134 L Potassium 3.7 Chloride 97 L Carbon Dioxide 29 Anion Gap 9 BUN 12 Creatinine 0.9 Creat Clearance w eGFR 99.77 Random Glucose 112 H Calcium 9.5 Phosphorus Magnesium Total Bilirubin 0.8 AST 24 ALT 32 Alkaline Phosphatase 52 Total Protein 7.6 Albumin 4.4 Lipase 75 TSH Free T4 Urine Color Yellow Urine Appearance Clear Urine pH 8.0 D Ur Specific [place] 1.079 H Urine Protein Negative Urine Glucose (UA) Negative Urine Ketones Negative Urine Blood Negative Urine Nitrite Negative Urine Bilirubin Negative Urine Urobilinogen 1.0 Ur Leukocyte Esterase Negative 07/06/18 07/06/18 07/06/18 07:23 07:23 07:23 WBC 11.3 H RBC 4.28 Hgb 14.8 Hct 42.7 MCV 99.7 H MCH 34.6 H MCHC 34.7 RDW 12.3 Plt Count 229 MPV 7.7 Absolute Neuts (auto) 9.6 H Neutrophils % 84.8 H Lymphocytes % 10.1 D Monocytes % 4.7 Eosinophils % 0.1 D Basophils % 0.3 Nucleated RBC % 0 PT with INR 13.20 H INR 1.12 H PTT (Actin FS) 35.9 Sodium 137 Potassium 3.5 Chloride 99 Carbon Dioxide 30 Anion Gap 8 BUN 9 Creatinine 0.8 Creat Clearance w eGFR 114.29 Random Glucose 111 H Calcium 9.1 Phosphorus 3.1 Magnesium 2.2 Total Bilirubin 1.2 H AST 20 ALT 31 Alkaline Phosphatase 51 Total Protein 7.4 Albumin 4.4 Lipase 90 TSH 2.05 D Free T4 1.34 H Urine Color Urine Appearance Urine pH Ur Specific [place] Urine Protein Urine Glucose (UA) Urine Ketones Urine Blood Urine Nitrite Urine Bilirubin Urine Urobilinogen Ur Leukocyte Esterase CT A/P results reviewed ASSESSMENT AND PLAN: 28 yom with HIV on HAART (last CD4 800s this month), reported abnormal anal pap smear, daily marihuana use, prior ED visits with vomiting, comes with intractable vomiting followed by diarrhea. -Intractable vomiting with some diarrhea, food poisoning (Had canned tuna yesterday) vs cyclical vomiting from daily marihuana use (prior ED visits with vomiting, with last once on 07/03/2018) -Epigastic pain/Burning, suspect gastritis and from vomiting -HIV on HAART -Reported abnormal anal pap smear Plan: Symptoms improved. Supportive treatment with IVF, zofran. PO clears tolerated well, advance to soft diet. Counseled on marihuana cessation. Stool studies if recurrent, or concerning diarrhea inhouse. GI/ID consulted. Resume HAART. Patient has not followed yet at the [facility] GI clinic. DVTPPX if stay expected >48 hours, encourage ambulation. Dispo d/c later today if tolerating PO and no concerns. Plan discussed with patient and nursing, all questions answered.
[2018-07-06] MEDS ORDERED: ONDANSETRON 4 MG/2 ML VIAL IVPUSH PRN (10:20)
[2018-07-06] MEDS ORDERED: INSULIN REGULAR HUMAN 100 UNITS/ML *VIAL ONE (10:26)
[2018-07-06] MEDS: NICOTINE 7 MG/24 HOURS TOPICAL PATCH TD SCH (10:32)
[2018-07-06] MEDS: PANTOPRAZOLE SODIUM 40 MG VIAL IVPUSH SCH (10:32)
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
[2018-07-06 10:53] VITALS: BMI 21.6
--- NOTE | 2018-07-06 13:06 | PN ---
Progress Note (short form) - Note Progress Note: ID consult dictated 28 yo man with HIV- cd4 816 on genvoya for last one year seen in ED 07/02 with vomiting and non bloody diarrhea after eating cheesecake at home d/lito home, felt better seen at [facility] 07/04 no complaints ate Tuna on 07/04 and then developed vomiting and nonbloody diarrhea again came to ED no fevers CT scan abd/pelvis- normal no travel no sick contacts pet cat/pet dog diarrhea has resolved still a sensation that he needs to vomit- +belching suspect gastroenteritis- appears self resolving continue hydration stools studies if diarrhea recurs HIV- continue ART marijuana use may explain the vomiting but not common for the diarrhea Problem List - Problems (1) Gastroenteritis Code(s): K52.9 - NONINFECTIVE GASTROENTERITIS AND COLITIS, UNSPECIFIED (2) HIV (human immunodeficiency virus infection) Code(s): B20 - HUMAN IMMUNODEFICIENCY VIRUS [HIV] DISEASE
--- NOTE | 2018-07-06 13:40 | CONS ---
DATE OF CONSULTATION: DATE OF DICTATION: 07/06/2018 REQUESTING PHYSICIAN: Hospitalist service. HISTORY: This is a 28-year-old man with a history of HIV stable. He has been on Genvoya for 1 year with good T cells. He was originally seen in the ER on Tuesday. He had cheesecake and then he developed nonbloody diarrhea and vomiting. He came to the ER, was hydrated and given some Zofran and discharged home. He improved. On Tuesday he was feeling much better. He was seen at the [facility] where he had some routine labs drawn. He was tolerating a bland diet. Tuesday afternoon he had some tuna fish, and he reports his symptoms started again with vomiting and nonbloody diarrhea. This persisted, and he came to the emergency room last night. He denies any fevers or chills. He has had no further diarrhea since last night. He describes a sensation of belching that is accompanied by vomiting. He has tolerated clears this morning. He has no abdominal pain. He had a CT of his abdomen and pelvis done in the emergency room that was normal. ALLERGIES: DAPSONE. MEDICATIONS: Genvoya. PAST MEDICAL HISTORY: He has never been hospitalized. Notable only for an abnormal anal Pap and HIV. His T cells are 812. PAST SURGICAL HISTORY: He has never had any surgery. SOCIAL HISTORY: He works for [employer]. He lives with his family. No one at home has been sick. There is no history of any travel. Notable for marijuana use. There is no history of cigarette or other substance use. There is no history of alcohol use. REVIEW OF SYSTEMS: Notable for the vomiting and diarrhea. He has had no fever. PHYSICAL EXAMINATION: General: A pleasant man in no acute distress. Vital Signs: Temperature 98.8, pulse 66, blood pressure 139/73, respiratory rate 18. He is saturating 100% on room air. HEENT: He is normocephalic. His eyes are anicteric. He has no pharyngitis. Neck: Supple. Lungs: Clear to auscultation. Heart: Regular rate and rhythm. Abdomen: Soft and nontender. Extremities: Without edema. Skin: He has no rash. DIAGNOSTIC DATA: His labs are notable for a white count 11.3, hemoglobin 14.8, platelets 229, BUN 9, creatinine 0.8. LFTs are normal. Urinalysis is negative. T cells are 816. His RPR is nonreactive. His blood cultures are pending. CAT scan is normal. He has received fluids and some Reglan in the emergency room. In summary, this is a young man with: 1. What I suspect is gastroenteritis that appears self-resolving. I would continue hydration. Stool studies if diarrhea recurs. They have been ordered and are pending as he has not had any further diarrhea. He seems to be tolerating clears, and his appetite appears to be slowly improving. 2. HIV. Would continue his ART. His T cells are high, and he is not at risk for opportunistic infection. 3. Marijuana use. This may explain the vomiting, but it is uncommon with his diarrhea. MICHAEL HODGES M.D. [id number]
[2018-07-06] MEDS ORDERED: LACTATED RINGERS SOLUTION 1,000 ML/1,000 ML INFUS.BAG IV SCH (15:16)
--- NOTE | 2018-07-06 16:36 | EKG ---
Test Reason : Blood Pressure : / mmHG Vent. Rate : 063 BPM Atrial Rate : 063 BPM P-R Int : 160 ms QRS Dur : 086 ms QT Int : 410 ms P-R-T Axes : 063 048 027 degrees QTc Int : 419 ms NORMAL SINUS RHYTHM NONSPECIFIC ST AND T WAVE ABNORMALITY ABNORMAL ECG NO PREVIOUS ECGS AVAILABLE Confirmed by MAN GIBSON, MINDY ([id number]) on 07/06/2018 4:36:00 PM Referred By: Confirmed By:MINDY CONWAY MD
--- NOTE | 2018-07-06 16:41 | CON.GI ---
Consult Consult Specialty:: GI Referred by:: Hospitalist Service Reason for Consultation:: Nausea and vomiting - History of Present Illness Chief Complaint: Nausea and vomiting History of Present Illness: 28M initially seen this past Tuesday at the [facility] ER for evaluation of N/V/D. He states that symptoms started around 4pm on tuesday. He recalls eating 2 pieces of strawberry cheescake from the cheesecake factory the night before. He was the only one who ate it. The diarrhea was watery and non bloody. He was discharged from the ER and returned last night due to recurrent N/V and diarrhea. The diarrhea seems to have improved. He smoked marijuana tuesday and tuesday. He states that a warm shower made him feel better in terms of the nausea and vomiting. He described chills over the weekend during his first episode however none yesterday. He denies unintentional weight loss. There is no family history of colorectal cancer, IBD. He has never had an upper endosscopy or colonoscopy. He denies recent travel or Abx use. He describes a similar episode a year ago that occurred about 2-3 hours after eating eggs. Contrast CT scan revealed only thickened bladder wall. - History Source History Provided By: Patient, Medical Record - Past Medical History Infectious Disease: Yes: HIV - Alcohol/Substance Use Hx Alcohol Use: No History of Substance Use: reports: Marijuana - Smoking History Smoking history: Former smoker Have you smoked in the past 12 months: Yes Aproximately how many cigarettes per day: 12 If you are a former smoker, when did you quit?: March 2018 - Social History Usual Living Arrangement: With Parent ADL: Independent Occupation: Works for [employer] Place of : [facility] History of Recent Travel: No Home Medications - Allergies Allergies/Adverse Reactions: Allergies Allergy/AdvReac Type Severity Reaction Status Date / Time dapsone AdvReac Verified 07/06/18 00:41 dapso AdvReac Uncoded 07/06/18 00:41 - Home Medications Home Medications: Ambulatory Orders Elviteg/Cob/Emtri/Tenof Alafen [Genvoya Tablet] 1 each PO DAILY #30 tablet 05/11 Family Disease History - Family Disease History Family Disease History: CA: Grandparent (thinks dm in the family; pat gpa with ? ca), Other: Grandparent, Father (Alive: healthy), Mother (Alive: HTN), Brother ( 6), Sister (6) Other Family History: No children. No family history of colorectal cancer or other GI malignancy Review of Systems - Review of Systems Constitutional: reports: Chills. denies: Fever, Unintentional Wgt. Loss Gastrointestinal: reports: Diarrhea, Nausea, Vomiting. denies: Abdominal Pain, Rectal Bleeding, Vomiting Blood Physical Exam-GI Vital Signs: Vital Signs Temperature 99.1 F 07/06/18 13:34 Pulse Rate 77 07/06/18 13:34 Respiratory Rate 20 07/06/18 13:34 Blood Pressure 146/76 07/06/18 13:34 O2 Sat by Pulse Oximetry (%) 100 07/06/18 07:20 Constitutional: Yes: Calm Eyes: No: Sclera Icterus Cardiovascular: Yes: Regular Rate and Rhythm Respiratory: Yes: CTA Bilaterally Gastrointestinal Inspection: No: Distention ...Auscultate: Yes: Normoactive Bowel Sounds ...Palpate: Yes: Soft. No: Splenomegaly, Tenderness ...Percussion: No: Tympanitic Edema: No (No LE edema) Neurological: Yes: Alert Labs: CBC, BMP 07/06/18 07:23 07/06/18 07:23 INR, PTT INR 1.12 (0.83-1.09) H 07/06/18 07:23 Imaging - Results Cat Scan: Report Reviewed Problem List - Problems (1) Acute gastroenteritis Assessment/Plan: I question if component of cannibis induced hyperemesis playing a role in his readmission. Clinically improved Advise: Advancing diet: full then as tolerated Stool for culture if persistent diarrhea Evluation of marcocytosis per primary team Code(s): K52.9 - NONINFECTIVE GASTROENTERITIS AND COLITIS, UNSPECIFIED
[2018-07-07 07:51] LABS: BASO % 0.3 % (0-2.0); EOS % 2.2 % (0-4.5); HEMATOCRIT 37.7 % (35.4-49); MCH 35.1 pg (25.7-33.7); MCHC 34.5 g/dl (32.0-35.9); MEAN CELL VOLUME 101.6 fl (80-96); MONO % 8.5 % (3.8-10.2); PLATELET COUNT 182 K/MM3 (134-434); RBC 3.71 M/mm3 (4.00-5.60); RDW 12.1 % (11.9-15.9); WHITE BLOOD COUNT 5.7 K/mm3 (4.0-10.0)
[2018-07-07 08:10] LABS: ALBUMIN 3.3 g/dl (3.4-5.0); ALK PHOS 34 U/L (45-117); ANION GAP 7 MMOL/L (8-16); BILIRUBIN,TOTAL 1.3 mg/dL (0.2-1); BLOOD UREA NITROGEN 7 mg/dL (7-18); CALCIUM 8.3 mg/dL (8.5-10.1); CHLORIDE 104 mmol/L (98-107); CO2 29 mmol/L (21-32); CREATININE 0.8 mg/dL (0.55-1.3); GLUCOSE,RANDOM 89 mg/dL (74-106); POTASSIUM 3.7 mmol/L (3.5-5.1); SGOT/AST 17 U/L (15-37); SGPT/ALT 23 U/L (13-61); SODIUM 140 mmol/L (136-145); TOT PROT 5.9 g/dl (6.4-8.2)
--- NOTE | 2018-07-07 10:52 | PN ---
Teaching Attending Note Name of Resident: Angi Irwin ATTENDING PHYSICIAN STATEMENT I saw and evaluated the patient. I reviewed the resident's note and discussed the case with the resident. I agree with the resident's findings and plan as documented with exceptions below. SUBJECTIVE: Patient seen and examined. no further nausea, vomiting, diarrhea. tolerating diet well. Feels well, eager to go home. OBJECTIVE: Vital Signs Period Temp Pulse Resp BP Sys/Ortega Pulse Ox Last 24 Hr 98.6 F-99.1 F 64-77 18-20 125-147/73-85 99 Intake & Output 07/04/18 07/05/18 07/06/18 07/07/18 23:59 23:59 23:59 23:59 Intake Total 1950 700 Balance 1950 700 Weight 150 lb 150 lb 8 oz General: ambulating in the room, no acute distress Abdomen:soft, NT, ND, positive bowel sounds Extremities: no edema Home Medications Medication Instructions Recorded Elviteg/Cob/Emtri/Tenof Alafen 1 each PO DAILY #30 tablet 05/11/18 [Genvoya Tablet] Active Medications Lactated Ringer's (Lactated Ringers Solution) 1,000 ml in 1,000 mls @ 100 mls/ hr IV ASDIR [facility] Last Admin: 07/07/18 06:58 Dose: 100 mls/hr Nicotine (Nicoderm Patch -) 7 mg TD DAILY [facility] Last Admin: 07/06/18 10:32 Dose: Not Given Ondansetron HCl (Zofran Injection) 4 mg IVPUSH Q6H PRN PRN Reason: NAUSEA Pantoprazole Sodium (Protonix Iv) 40 mg IVPUSH DAILY [facility] Last Admin: 07/06/18 10:32 Dose: 40 mg Laboratory Results - last 24 hr 07/07/18 07/07/18 07:00 07:00 WBC 5.7 RBC 3.71 L Hgb 13.0 Hct 37.7 MCV 101.6 H MCH 35.1 H MCHC 34.5 RDW 12.1 Plt Count 182 D MPV 8.0 Absolute Neuts (auto) 3.1 Neutrophils % 54.0 D Lymphocytes % 35.0 D Monocytes % 8.5 D Eosinophils % 2.2 D Basophils % 0.3 Nucleated RBC % 0 Sodium 140 Potassium 3.7 Chloride 104 Carbon Dioxide 29 Anion Gap 7 L BUN 7 Creatinine 0.8 Creat Clearance w eGFR 114.29 Random Glucose 89 Calcium 8.3 L Total Bilirubin 1.3 H AST 17 ALT 23 Alkaline Phosphatase 34 L Total Protein 5.9 L Albumin 3.3 L ASSESSMENT AND PLAN: 28 yom with HIV on HAART (last CD4 800s this month), reported abnormal anal pap smear, daily marihuana use, prior ED visits with vomiting, comes with intractable vomiting followed by diarrhea. -Intractable vomiting with some diarrhea, food poisoning (Had canned tuna yesterday) vs cyclical vomiting from daily marihuana use (prior ED visits with vomiting, with last once on 07/03/2018) -Epigastic pain/Burning, suspect gastritis and from vomiting -HIV on HAART -Reported abnormal anal pap smear Plan: Tolerating diet well. Symptoms resolved. Marihuana cessation counselling reinforced Outpatient b12.folate levels and supplement accordingly. Continue HAART Advised to follow up at [facility] GI clinic as prior recommended d/c home. plan discussed with patient in detail, all questions answered.
[2018-07-07 11:01] VITALS: BP 134/88; PULSE 60; TEMP 98.5
[2018-07-07] MEDS: PANTOPRAZOLE SODIUM 40 MG VIAL IVPUSH SCH (11:07)
[2018-07-07] MEDS: NICOTINE 7 MG/24 HOURS TOPICAL PATCH TD SCH (11:07)
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
== END 2018-07-07 11:55 | disposition home or self-care (01) | DRG 54 ==
LOC: JER 23:40 → JERBED 07-06 06:03 → J7W 07-06 08:42
PROVIDERS: ADMIT Internal Medicine; ATTEND Hospitalist
DX: G43.A1 Cyclical vomiting, in migraine, intractable (principal); K52.9 Noninfective gastroenteritis and colitis, unspecified; C21.8 Malignant neoplasm of overlapping sites of rectum, anus and anal canal; Z21 Asymptomatic human immunodeficiency virus [HIV] infection status; F12.10 Cannabis abuse, uncomplicated; F17.210 Nicotine dependence, cigarettes, uncomplicated; E07.9 Disorder of thyroid, unspecified; K29.70 Gastritis, unspecified, without bleeding; R85.610 Atypical squamous cells of undetermined significance on cytologic smear of anus (ASC-US)
CPT/HCPCS: 36415; 74177-TC; 80053; 81003; 83690; 83735; 84100; 84439; 84443; 85025; 85610; 85730; 87040; 93005; 93010; 99284-25; J7030; Q0162

== ENCOUNTER 2018-12-13 20:52 | Emergency (ER) | payer OTHER ==
[2018-12-13] MEDS ORDERED: ONDANSETRON 4 MG/2 ML VIAL IVPUSH ONE (21:30)
[2018-12-13] MEDS ORDERED: SODIUM CHLORIDE 1,000 ML IV STA (21:30)
--- NOTE | 2018-12-13 21:30 | PDOC ---
Rapid Medical Evaluation Chief Complaint: Nausea/Vomiting Time Seen by Provider: 12/13/18 21:27 Medical Evaluation: Allergies Allergy/AdvReac Type Severity Reaction Status Date / Time dapsone AdvReac Verified 12/13/18 21:21 dapso AdvReac Uncoded 12/13/18 21:21 Vital Signs Temp Pulse Resp BP Pulse Ox 98.3 F 77 18 142/85 99 12/13/18 21:19 12/13/18 21:19 12/13/18 21:19 12/13/18 21:19 12/13/18 21:19 12/13/18 21:28 Patient presents to ED with complaints of: n/v, abd pain, took 2 xanax for colonoscopy patient on brief exam: actively vomiting Patient ordered for: labs, ivf, zofran Patient to proceed to the ED Discharge Disposition - Diagnosis Nausea & vomiting Qualifiers: Vomiting type: unspecified Vomiting Intractability: non-intractable Qualified Code(s): R11.2 - Nausea with vomiting, unspecified - Discharge Dispostion Disposition: HOME Condition at time of disposition: Stable - Prescriptions Prescriptions: Metoclopramide HCl [Reglan] 10 mg PO TID #20 tablet - Referrals Referrals: Lilian Townsend MD [Primary Care Provider] - - Patient Instructions Printed Discharge Instructions: DI for Vomiting -- Adult - Post Discharge Activity
[2018-12-13 21:31] VITALS: TEMP 98.3; BMI 23.5
--- NOTE | 2018-12-13 21:41 | PDOC ---
History of Present Illness - General Chief Complaint: Nausea/Vomiting Stated Complaint: VOMITING Time Seen by Provider: 12/13/18 21:27 - History of Present Illness Initial Comments: 12/13/18 21:38 CHIEF COMPLAINT: vomiting HISTORY OF PRESENT ILLNESS: 28 yo M with hx of HIV (undetectable VL, CD4 "normal " per pt), cannibinoid induced vomiting, presents to ED with vomiting after taking xanax today. Patient reports he was going to get a colonoscopy today and was feeling a lot of anxiety and was given Xanax. He reports taking two pills and then feeling nauseous so "I went home and ate some food" and then started vomiting. He denies any diarrhea but reports "i feel like I have to go diarrhea." Denies fever, chills. No recent travel or sick contacts. PAST MEDICAL HISTORY: Denies past medical history FAMILY HISTORY: Denies SOCIAL HISTORY: Hx of marijuana abuse. SURGICAL HISTORY: Denies ALLERGIES: dapsone REVIEW OF SYSTEMS General/Constitutional: Denies fever or chills. Denies weakness, weight change. HEENT: Denies change in vision. Denies ear pain or discharge. Denies sore throat. Cardiovascular: Denies chest pain or shortness of breath. Respiratory: Denies cough, wheezing, or hemoptysis. Gastrointestinal: Vomiting, abdominal pain. Denies rectal bleeding. Genitourinary: Denies dysuria, frequency, or change in urination. Musculoskeletal: Denies joint or muscle swelling or pain. Denies neck or back pain. Skin and breasts: Denies rash or easy bruising. Neurologic: Denies headache, vertigo, loss of consciousness, or loss of sensation. Psychiatric: Denies depression or anxiety. PHYSICAL EXAM General Appearance: Well-appearing, appropriately dressed. No apparent distress. HEENT: EOMI, PERRLA, normal ENT inspection, normal voice, TMs normal, pharynx normal. No conjunctival pallor. No photophobia, scleral icterus. Neck: Supple. Trachea midline. No tenderness, rigidity, carotid bruit, stridor , lymphadenopathy, or thyromegaly. Respiratory/Chest: Lungs CTAB. No shortness of breath, chest tenderness, respiratory distress, accessory muscle use. No crackles, rales, rhonchi, stridor , wheezing, dullness Cardiovascular: RRR. S1, S2. No JVD, murmur, bradycardia, tachycardia. Vascular Pulses: Dorsalis-Pedis (R): 2+, Dorsalis-Pedis (L): 2+ Gastrointestinal/Abdominal: Normal bowel sounds. Abdomen soft, non-distended. No tenderness or rebound tenderness. No organomegaly, pulsatile mass, guarding , hernia, hepatomegaly, splenomegaly. Musculoskeletal/Extremities: Normal inspection. FROM of all extremities, normal capillary refill. Pelvis Stable. No CVA tenderness. No tenderness to extremities, pedal edema, swelling, erythema or deformity. Integumentary: Appropriate color, dry, warm. No cyanosis, erythema, jaundice or rash Neurologic: neurosurgical nurse II-XII intact. Fully oriented, alert. Appropriate mood/affect. Motor strength 5/5. No appreciable EOM palsy, facial droop or sensory deficit. Past History - Past Medical History Allergies/Adverse Reactions: Allergies Allergy/AdvReac Type Severity Reaction Status Date / Time dapsone AdvReac Verified 12/13/18 21:21 dapso AdvReac Uncoded 12/13/18 21:21 Home Medications: Ambulatory Orders Elviteg/Cob/Emtri/Tenof Alafen [Genvoya Tablet] 1 each PO DAILY #30 tablet 05/11 Cyproheptadine [Periactin -] 1 tab PO HS #30 tablet 12/05/18 Metoclopramide HCl [Reglan] 10 mg PO TID #20 tablet 12/14/18 Anemia: No Asthma: No Cancer: No Cardiac Disorders: No CVA: No COPD: No CHF: No Dementia: No Diabetes: No GI Disorders: Yes (occas gastritis) Disorders: No (no hx gc/ct/syphilis) HTN: No Hypercholesterolemia: No Liver Disease: No Seizures: No Thyroid Disease: Yes (he has abn thyroid function not sure if hyper/hypo) - Immunization History Immunization Up to Date: Yes - Suicide/Smoking/Psychosocial Hx Smoking History: Never smoked Have you smoked in the past 12 months: Yes Number of Cigarettes Smoked Daily: 12 If you are a former smoker, when did you quit?: March 2018 Cigars Per Day: 1 Hx Alcohol Use: No Drug/Substance Use Hx: Yes Substance Use Type: Marijuana Hx Substance Use Treatment: No *Physical Exam - Vital Signs Last Vital Signs Temp Pulse Resp BP Pulse Ox 98.3 F 77 18 142/85 99 12/13/18 21:19 12/13/18 21:19 12/13/18 21:19 12/13/18 21:19 12/13/18 21:19 ED Treatment Course - LABORATORY CBC & Chemistry Diagram: 12/13/18 21:40 12/13/18 21:40 Medical Decision Making - Medical Decision Making 12/13/18 22:00 28 yo M with hx of HIV, cannibinoid induced vomiting, presents to ED with vomiting after taking xanax today. -labs -IVF, zofran 12/13/18 00:30 Patient continues to c/o of nausea after administration of zofran. Reglan given. 12/14/18 01:17 WBC 13.4, likely reactive from vomiting. Pt +for benzo and marijuana on utox. 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 Advised patient to take medications as prescribed and to f/u with PCP within the next week. Patient verbalized understanding and agrees to plan. *DC/Admit/Observation/Transfer Diagnosis at time of Disposition: Nausea & vomiting Qualifiers: Vomiting type: unspecified Vomiting Intractability: non-intractable Qualified Code(s): R11.2 - Nausea with vomiting, unspecified - Discharge Dispostion Disposition: HOME Condition at time of disposition: Stable Decision to Admit order: No - Prescriptions Prescriptions: Metoclopramide HCl [Reglan] 10 mg PO TID #20 tablet - Referrals Referrals: Lilian Townsend MD [Primary Care Provider] - - Patient Instructions Printed Discharge Instructions: DI for Vomiting -- Adult - Post Discharge Activity
[2018-12-13 21:50] LABS: BASO % 0.3 % (0-2.0); EOS % 0.4 % (0-4.5); HEMATOCRIT 41.3 % (35.4-49); HEMOGLOBIN 13.6 GM/dL (11.7-16.9); LYMPH % 13.8 % (8-40); MCH 33.4 pg (25.7-33.7); MEAN CELL VOLUME 101.2 fl (80-96); MEAN PLT VOLUME 8.2 fl (7.5-11.1); MONO % 4.2 % (3.8-10.2); NEUT % 81.3 % (42.8-82.8); PLATELET COUNT 216 K/MM3 (134-434); RBC 4.08 M/mm3 (4.00-5.60); RDW 11.9 % (11.9-15.9); WHITE BLOOD COUNT 13.4 K/mm3 (4.0-10.0)
[2018-12-13] MEDS ORDERED: ONDANSETRON 4 MG/2 ML VIAL ONE (21:53)
[2018-12-13 22:14] LABS: ALBUMIN 4.1 g/dl (3.4-5.0); BILIRUBIN,TOTAL 0.4 mg/dL (0.2-1); BLOOD UREA NITROGEN 11.8 mg/dL (7-18); CALCIUM 9.6 mg/dL (8.5-10.1); CREATININE 0.9 mg/dL (0.55-1.3); MAGNESIUM 1.8 mg/dL (1.8-2.4)
[2018-12-14] MEDS ORDERED: METOCLOPRAMIDE HCL INJECTION 10 MG/2 ML VIAL IVPUSH ONE (00:11)
[2018-12-14] MEDS ORDERED: METOCLOPRAMIDE HCL INJECTION 10 MG/2 ML VIAL ONE (00:20)
[2018-12-14 01:10] LABS: COCAINE, UR NEGATIVE ng/ml (CUTOFF=300); METHADONE, UR NEGATIVE ng/ml (CUTOFF=300); OPIATES, URI NEGATIVE ng/ml (CUTOFF=300); PHENCYCLIDINE,URINE NEGATIVE ng/ml (CUTOFF=25); URINE AMPHETAMINES NEGATIVE ng/ml (CUTOFF=500); URINE BARBITURATES NEGATIVE ng/ml (CUTOFF=200)
[2018-12-14 01:11] LABS: URINE BENZODIAZEPINES POSITIVE ng/ml (CUTOFF=200)
[2018-12-14] MEDS ORDERED: HALOPERIDOL LACTATE 5 MG/ML IM ONE (01:49)
[2018-12-14] MEDS ORDERED: HALOPERIDOL LACTATE 5 MG/ML ONE (01:58)
[2018-12-14] MEDS ORDERED: ONDANSETRON 4 MG/2 ML VIAL IVPUSH ONE (02:05)
[2018-12-14] MEDS ORDERED: ONDANSETRON 4 MG/2 ML VIAL ONE (02:05)
[2018-12-14 02:43] VITALS: BP 139/83; PULSE 79
== END 2018-12-14 02:47 | disposition home or self-care (01) ==
LOC: JER 20:52
PROC: 3E033GC Introduction of Other Therapeutic Substance into Peripheral Vein, Percutaneous Approach (ICD-10-PCS; principal; 2018-12-13)
PROC: 3E033GC Introduction of Other Therapeutic Substance into Peripheral Vein, Percutaneous Approach (ICD-10-PCS; 2018-12-13)
PROC: 3E033GC Introduction of Other Therapeutic Substance into Peripheral Vein, Percutaneous Approach (ICD-10-PCS; 2018-12-13)
DX: R11.2 Nausea with vomiting, unspecified (principal); F12.988 Cannabis use, unspecified with other cannabis-induced disorder; Z21 Asymptomatic human immunodeficiency virus [HIV] infection status
CPT/HCPCS: 36415; 80053; 80307; 83690; 83735; 85025; 99282-25; J7030

== ENCOUNTER 2019-10-01 18:17 | Emergency (ER) | payer OTHER ==
[2019-10-01 18:22] VITALS: BP 124/52; PULSE 83; TEMP 98; BMI 23.6
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
== END 2019-10-01 18:51 | disposition home or self-care (01) ==
LOC: JERFT 18:17
DX: S69.91XA Unspecified injury of right wrist, hand and finger(s), initial encounter (principal); W22.8XXA Striking against or struck by other objects, initial encounter
CPT/HCPCS: 73110-TC-RT-FY; 73130-TC-RT-FY; 99283-25

== ENCOUNTER 2020-09-03 02:41 | Emergency (ER) | payer OTHER ==
[2020-09-03 03:14] VITALS: BP 116/69; PULSE 71; TEMP 98; BMI 20.5
[2020-09-03] MEDS ORDERED: ONDANSETRON *ODT* 4 MG TABLET SL ONE (03:14)
[2020-09-03] MEDS ORDERED: ONDANSETRON *ODT* 4 MG TABLET ONE (03:18)
== END 2020-09-03 03:32 | disposition home or self-care (01) ==
LOC: JER 02:41
DX: R11.10 Vomiting, unspecified (principal)
CPT/HCPCS: 99283-25; Q0162

== ENCOUNTER 2021-03-19 17:32 | Emergency (ER) | payer BC, OTHER ==
[2021-03-19 17:41] VITALS: BP 139/75; PULSE 61; TEMP 98; BMI 24.3
[2021-03-19] MEDS ORDERED: KETOROLAC TROMETHAMINE 30 MG/1 ML VIAL IM ONE (19:20)
[2021-03-19] MEDS ORDERED: ACETAMINOPHEN WITH CODEINE 300MG/30MG TABLET PO ONE (19:30)
[2021-03-19] MEDS ORDERED: KETOROLAC TROMETHAMINE 30 MG/1 ML VIAL ONE ×2 (20:00→20:24)
[2021-03-19] MEDS ORDERED: ACETAMINOPHEN WITH CODEINE 300MG/30MG TABLET ONE (20:03)
== END 2021-03-19 23:39 | disposition left against medical advice (07) ==
LOC: JERFT 17:32
DX: K08.89 Other specified disorders of teeth and supporting structures (principal)
CPT/HCPCS: 99283-25